=== PATIENT | female | born 1935 | race African-American/Black ===

== ENCOUNTER 2016-11-03 09:38 | Inpatient (IN) | payer OTHER ==
[~2016-11-03] VITALS: Ht 154.9 cm; Wt 52.2 kg
[~2016-11-03 09:38] MED LIST: HYDR-2666 PO; IBUP200T77 PO
[2016-11-03] MEDS ORDERED: HYDROCODONE/APAP 5/325MG TABLET. PO ONE (11:15)
--- NOTE | 2016-11-03 11:37 | RAD ---
Lumbar spine, 5 views, 11/03/2016: History: Back pain radiating into both legs The bony structures are demineralized. There is a grade 2 spondylolisthesis at L4-5. This appears to be due to severe underlying facet joint arthropathy. No definite spondylolysis is seen. There is moderate disc space at L4-5 and to a greater degree at L5-S1. There are mild scattered marginal spurs. The lumbar vertebral heights are well-maintained. Aortoiliac calcific plaquing is present. IMPRESSION: 1. Demineralization. 2. Moderate multilevel degenerative change. 3. Grade 2 spondylolisthesis at L4-5 due to facet joint arthropathy.
--- NOTE | 2016-11-03 12:10 | PHYS DOC ---
Past Medical History Past Medical History: High Cholesterol, Hypertension Past Surgical History: Other Additional Past Surgical Histo: back Alcohol Use: Occasionally Drug Use: None Adult General Chief Complaint Chief Complaint: bilateral leg pain HPI HPI Patient is a 81 year old female brought from home by ambulance with the complaint of pain in the back of both of her legs from the buttock down to the knee, equal bilaterally, pain is severe. It started week or 2 ago, she tried some [id number] pain meds. She was seen in the ED with a diagnosis of hamstring pain and given a prescription for #15 Mcbee. They did help when she took them but she has used them all up and now she is again in severe pain. She couldn't sleep at all last night. She can hardly get out of bed. She also relates an incident of loss of bladder control, but I'm not sure if that may have been caused by her inability to get up out of bed because her legs hurt so bad. She usually walks with a walker and has not been able to do so. She can hardly get out of bed due to pain. She did have surgery on a disc in her back years ago but she does not really have chronic back problems. Review of Systems Review of Systems Constitutional: Denies fever or chills [] Eyes: Denies change in visual acuity, redness, or eye pain [] HENT: Denies nasal congestion or sore throat [] Respiratory: Denies cough or shortness of breath [] Cardiovascular: Denies chest pain GI: Denies abdominal pain, nausea, vomiting, bloody stools or diarrhea [] : Denies dysuria or hematuria , denies UTI symptoms, as in history of present illness for loss of bladder control one time Musculoskeletal: As in history of present illness Integument: Denies rash or skin lesions [] Neurologic: Denies headache, focal weakness or sensory changes [] Current Medications Current Medications Current Medications Medications (Trade) Dose Ordered Sig/Katlyn Start Time Stop Time Status Last Admin Dose Admin Acetaminophen/ Hydrocodone Bitart (Lortab 5/325) 1 tab 1X ONCE 11/03/16 11:15 11/03/16 11:16 DC 11/03/16 11:28 1 TAB Allergies Allergies Allergies Coded Allergies Type Severity Reaction Last Updated Verified No Known Drug Allergies 10/23/16 No Physical Exam Physical Exam Constitutional: Well developed, well nourished, no acute distress, non-toxic appearance. Alert, mentating normally. HENT: Normocephalic, atraumatic, bilateral external ears normal, nose normal. [ ] Eyes: conjunctiva normal, no discharge. [] Neck: Normal range of motion, no stridor. [] Cardiovascular:Heart rate regular rhythm, no murmur [] Lungs & Thorax: Bilateral breath sounds clear to auscultation [] Abdomen: Bowel sounds normal, soft, no tenderness, no masses, no pulsatile masses. [] Skin: Warm, dry, no erythema, no rash. [] Extremities: No tenderness, no cyanosis, no clubbing, ROM intact, no edema. Area of pain is the posterior aspect of both thighs, nontender to palpation, no skin abnormalities, no swelling, no deformity, muscles are possibly a little tense Neurologic: Alert and oriented X 3, normal motor function, normal sensory function, no focal deficits noted. Lower extremity strength 5 over 5 for dorsi and plantar flexion of the great toes while laying on the cart Current Patient Data Vital Signs Vital Signs Date Time Temp Pulse Resp B/P Pulse Ox O2 Delivery O2 Flow Rate FiO2 11/03/16 11:55 78 18 170/100 98 11/03/16 11:28 Room Air 11/03/16 09:42 98.1 98.1 EKG EKG [] Radiology/Procedures Radiology/Procedures Lumbar spine x-rays read by the radiologist with grade 2 spondylolisthesis L4 on L5 [] Course & Med Decision Making Course & Med Decision Making Pertinent Labs and Imaging studies reviewed. (See chart for details) 81-year-old female with recent onset of severe disabling pain from her low back down into both posterior thighs to the knees. She can hardly get out of bed much less walk due to the pain. She did have one episode of loss of bladder control but I don't believe as described it was necessarily neurologic, sounds more like it was cause because she had too much pain to be able to get out of bed to go to the bathroom. X-rays show a significant L4-L5 spondylolisthesis. I believe her pain sounds radicular. She is virtually incapacitated by her pain and needs it addressed acutely as well as needs pain medication. I discussed the case with Dr. Samuel, [facility] medicine, who will admit the patient. I wrote bridge orders. She requested consultation with neurosurgery and pain management which I wrote for. Patient and her family are agreeable to the plan for admission. [] Dragon Disclaimer Dragon Disclaimer This electronic medical record was generated, in whole or in part, using a voice recognition dictation system. Departure Departure Impression: Primary Impression: Lumbar radiculopathy, acute Additional Impression: Spondylolisthesis at L4-L5 level Disposition: ADMITTED INPATIENT Admitting Physician: Other Condition: STABLE Referrals: CHARLEE MAYNARD MD (PCP) Problem Qualifiers ELVIN HIGGINS MD Nov 03, 2016 12:10
[2016-11-03] MEDS ORDERED: FENTANYL PF 100 MCG/2 ML VIAL. IV PRN ×2 (12:15)
[2016-11-03 12:50] LABS: BASO % 0 % (0-3); EOS % 0 % (0-3); HEMATOCRIT 42.1 % (36.0-47.0); LYMPH # 1.8 x10^3/uL (1.0-4.8); LYMPH % 17 % (24-48); MEAN CORPUSCULAR HEMOGLOBIN 32 pg (25-35); MEAN CORPUSCULAR HGB CONC 33 g/dL (31-37); MEAN CORPUSCULAR VOLUME 97 fL (79-100); MONO % 8 % (0-9); NEUT % 74 % (31-73); PLATELET COUNT 268 x10^3/uL (140-400); RED BLOOD COUNT 4.36 x10^6/uL (3.50-5.40); RED CELL DISTRIBUTION WIDTH 14.1 % (11.5-14.5); WHITE BLOOD COUNT 10.3 x10^3/uL (4.0-11.0)
[2016-11-03 12:57] LABS: CALCIUM 9.3 mg/dL (8.5-10.1); CREATININE 0.9 mg/dL (0.6-1.0); GFR 72.5; POTASSIUM 3.1 mmol/L (3.5-5.1)
[2016-11-03 13:03] LABS: ALBUMIN 3.6 g/dL (3.4-5.0); TOTAL BILIRUBIN 1.7 mg/dL (0.2-1.0); TOTAL PROTEIN 7.1 g/dL (6.4-8.2)
[2016-11-03 14:10] VITALS: BP 135/75
--- NOTE | 2016-11-03 14:56 | ACF ---
Admission Forms Criteria MUSCULOSKELETAL DISEASE GRG Clinical Indications for Admission to Inpatient Care (Place 'X' for any and all applicable criteria): Hospital admission is needed for appropriate care of the patient because of ANY ONE of the following: [X]I. Fracture, dislocation, or other musculoskeletal injury requiring inpatient care(medical) as indicated by ANY ONE of the following(4)(5)(6)(7) [ ]a) Vertebral fracture requiring observation for instability or neurologic compromise (8) [ ]b) Compartment syndrome (proven or cannot be ruled out during observation level of care) (9) [ ]c) Limb-threatening injury [ ]d) Major injury requiring inpatient stabilization such as traction initiation or external fixation before internal fixation or closure of complex or open fracture [X]e) Major injury requiring inpatient treatment after emergency or observation level care (as appropriate) [ ]f) Severe pain requiring acute inpatient management [ ]II. Newly diagnosed or suspected bone, joint, or orthopedic device infection (e.g., osteomyelitis, septic arthritis) needing ANY ONE of the following(1)(2)(3) [ ]a) IV antibiotics that cannot be initiated in other than inpatient setting (e.g., patient too unstable or home infusion not available) [ ]b) Device removal or replacement [ ]c) Bone or soft tissue debridement [ ]d) Joint drainage (drain placement or repetitive aspirations) [ ]III. Severe rheumatologic disease (e.g., systemic lupus erythematosus, rheumatoid arthritis) with complications or comorbidities (Also use Optimal Recovery Care Criteria or General Recovery Criteria as appropriate on the basis of predominant condition), including ANY ONE of the following(10 )(11)(12)(13) [ ]a) Severe infection (e.g., ASSISTANT WINEMAKER infection, sepsis) (14) [ ]b) Respiratory complications, including ANY ONE of the following: [ ]i) Pleural effusion with respiratory compromise [ ]ii) Pulmonary hypertension with congestive failure [ ]iii) Respiratory failure [ ]iv) Pulmonary hemorrhage (15) [ ]c) Hematologic disease, including ANY ONE of the following: [ ]i) Coagulopathy with bleeding [ ]ii) Thrombosis with hypercoagulable state [ ]iii) Thrombotic thrombocytopenic purpura [ ]d) Cerebritis with seizures, psychosis, or other severe abnormalities [ ]e) Vertebral destruction with monitoring needed for cervical myelopathy& possible respiratory compromise [ ]f) Exacerbation that requires inpatient treatment (e.g., intravenous immunosuppression) (16) [ ]g) Acute renal failure [ ]IV. Severe vasculitis with complications or comorbidities (Also use Optimal Recovery Care Criteria or General Recovery Criteria as appropriate on the basis of predominant condition), including ANY ONE of the following(11)(12)(17)(18)(19)(20) [ ]a) ASSISTANT WINEMAKER vasculitis with seizures, psychosis, or other severe abnormalities (22) [ ]b) Renal failure (16) [ ]c) Pulmonary hemorrhage (15) [ ]d) Cerebral infarction [ ]e) Gastrointestinal ischemia [ ]f) Gangrene or threatened amputation [ ]g) Exacerbation that requires inpatient treatment (e.g., intravenous immunosuppression) (19)(21) [ ]V. Severe myopathy as indicated by ANY ONE of the following (28)(29) [ ]a) New onset of airway compromise or inability to swallow [ ]b) Respiratory deterioration with observation needed for impending respiratory failure [ ]c) Exacerbation that requires inpatient treatment (e.g., intravenous immunosuppression) [ ]. Severe gout (crystal arthropathy) as indicated by ANY ONE of the following (23)(24) [ ]a) Severe pain requiring acute inpatient management [ ]b) Exacerbation that requires inpatient treatment (e.g., intravenous treatment) [ ]VII.Rhabdomyolysis and ANY ONE of the following (25)(26)(27) [ ]a) Acute renal failure [ ]b) Need for intravenous hydration after emergency or observation level care (as appropriate) [ ]c) Inability to maintain oral hydration [ ]d) Change in mental status [ ]e) Electrolyte abnormality that remains after emergency or observation level care (as appropriate) [ ]VIII Post amputation complication, as indicated by ANY ONE of the following [ ]a) Infection [ ]b) Dehiscence [ ]c) Myodesis failure [ ]IX. Severe pain requiring acute inpatient management as indicated by ALL of the following (30)(31)(32) [ ]a) Continuous or frequent (e.g., every 2 to 4 hrs) parenteral analgesics required [A] [ ]b) Rapid improvement expected from treatment or acute intervention ( e.g., surgery, anesthesia procedure[B] [ ]X. Musculoskeletal Disease and ALL of the following: [ ]a) Symptom or finding for which emergency and observation care have failed or are not considered appropriate (Use General Criteria: Observation Care as appropriate) [ ]b) Presence of ANY ONE of the following [ ]i) A General Admission Criteria [ ]ii) A Pediatric General Admission Criteria The original [facility] content created by [facility] has been revised. The portions of the content which have been revised are identified through the use of italic text or in bold, and [facility] has neither reviewed nor approved the modified material. All other unmodified content is copyright [facility]. Please see references footnoted in the original [facility] edition 2016 Admission Criteria Met?: Yes MELLISSA VILLAR Nov 03, 2016 14:56
[2016-11-03] MEDS ORDERED: tiZANidine 4 MG TABLET. PO PRN (16:15)
[2016-11-03] MEDS ORDERED: BUPIVACAINE MPF 0.25% 10 ML VIAL. IJ ONE (16:30)
[2016-11-03] MEDS ORDERED: methylPREDNISolone ACETATE 40 MG/ML VIAL. IM ONE ×2 (16:30)
--- NOTE | 2016-11-03 16:59 | PDOC4 ---
PROCEDURE Procedure At her request,I have injected painful left sacroiliac joint and ischial tuberosity bursa with marcaine and depomedrol solution under aseptic skin technique,and she tolerated the procedure satisfactorily without any side effects. MERE PULLIAM MD Nov 03, 2016 16:59
[2016-11-03] MEDS: PANTOPRAZOLE 40 MG TABLET. PO SCH (17:02)
[2016-11-03] MEDS ORDERED: AMLO10TA2 PO (18:05)
[2016-11-03 19:15] VITALS: BP 159/85
[2016-11-03] MEDS ORDERED: IBUPROFEN 200 MG TABLET PO PRN (19:45)
[2016-11-03] MEDS ORDERED: HYDROCODONE/APAP 5/325MG TABLET. PO PRN (19:45)
[2016-11-03] MEDS: IBUPROFEN 600 MG TABLET. PO SCH (20:41)
[2016-11-03] MEDS: FAMOTIDINE 20 MG TABLET. PO SCH (20:42)
[2016-11-03] MEDS: AMLODIPINE BESYLATE 10 MG TABLET PO SCH (20:42)
[2016-11-03 23:31] VITALS: BP 160/80
--- NOTE | 2016-11-04 01:21 | HP ---
ADMIT DATE: 11/03/2016 CHIEF COMPLAINT: Severe lower back pain with radiation into the legs. HISTORY OF PRESENT ILLNESS: The patient is a delightful 81-year-old -Martiniquais woman, who was brought in by ambulance from her home with complaints of lower back pain radiating into both legs. She relates that the pain is excruciating. She is unable to walk at this point. It started about 2 days ago and she had tried some [id number]-nam-[id number] pain medications as well as heating pads, which did not seem to improve her symptoms. She had been seen in the Emergency Room for same symptoms and had received a diagnosis of hamstring pain and was given a prescription for Danube, which she all used up in about 2 days. Now, she has trouble sleeping, cannot get out of bed and also had an episode of loss of bladder control, although unclear if this was secondary to inability to walk due to pain. At best, she walks with the walker at home. She did have a diskectomy in the distant past approximately 2009, but did not have any issues since then. The patient is now admitted for pain control and further evaluation by Dr. Clemens. PAST MEDICAL HISTORY: Essentially none, safe for hypertension and hypercholesterolemia. FAMILY HISTORY: Significant for hypertension and diabetes in sister and father. SOCIAL HISTORY: Lives by herself, never smoked, no toxic habits. ALLERGIES: No known drug allergies. MEDICATIONS: MAR reconciled with home medications. REVIEW OF SYSTEMS: Positive as per HPI. She denies any fevers, chills. Denies any recent interviews. The rest of organ system review is negative. PHYSICAL EXAMINATION: VITAL SIGNS: From today show blood pressure of 135/75, heart rate 66, respiratory rate of 18. She is afebrile. GENERAL: This is a well-nourished, 81-year-old, -Martiniquais woman, alert and oriented, in no acute distress. HEENT: Shows no scleral icterus. Oral mucosa is pink and moist. Dentition is poor. NECK: Supple, without lymphadenopathy. LUNGS: Clear to auscultation bilaterally. HEART: Regular rate and rhythm. ABDOMEN: Has positive bowel sounds, soft, nontender. EXTREMITIES: Show no edema, no clubbing or cyanosis. SKIN: Warm, soft dry. LABORATORY DATA: CBC with a WBC of 10.3, hemoglobin 14.0, platelets of 286. Chemistries with a BUN and creatinine of 12 and 0.9, potassium at 3.1, total bilirubin at 1.7. The rest of LFTs are within normal limits. IMAGING STUDIES: Lumbar spine x-ray revealed demineralization, moderate multilevel degenerative change and grade 2 spondylolisthesis at level L4-L5 due to facet joint arthropathy. ASSESSMENT AND PLAN: The patient is an 81-year-old woman with degenerative joint disease and signs of radiculopathy. We will admit her for pain control. Dr. Clemens will be consulted for consideration of nerve root injection. Blood pressure currently is perfectly within normal limits. We will monitor for now, has Norvasc at home, which will be continued. We will continue all home medications with normal renal functions. We will start on 30 of Lovenox for prophylaxis while physically in active. We will obtain OT, PT consult for evaluation of home needs versus rehab placement. DANIEL HENRY MD DR: KATELYN/nts JOB#: [id number] / [id number] FRAN
[2016-11-04 03:22] VITALS: BP 135/77
[2016-11-04 07:00] VITALS: BP 167/91
--- NOTE | 2016-11-04 08:45 | CONS ---
DATE OF CONSULTATION: 11/03/2016 ATTENDING PHYSICIAN: Dr. Samuel. REASON FOR CONSULTATION: The patient was seen at the request of Dr. Samuel for rehab evaluation. HISTORY OF PRESENT ILLNESS: This is an 81-year-old female admitted through the Emergency Room, brought by ambulance with complaints of left hip area pain with associated spasm going down to her left lower extremity, going on for about 2 weeks ago without any specific injury. She had tried [id number] medication without much help. The patient was diagnosed as having hamstring muscle strain in the Emergency Room and was given hydrocodone did help temporarily and she could not sleep last night, so this morning, she had difficulty to get out of the bed and also relates an incident of loss of bladder control. She usually walks using a walker. She does not have any steps to manage. She lives alone. The patient is status post lumbar disk surgery done in . She denies any chronic lower back pain. The patient being followed by Dr. Pasquale Pepper, but she has an appointment to see him in 09/21/2016. The patient had x-rays of lumbar spine done in the Emergency Room, which revealed grade 2 spondylolisthesis of L4 on L5 with associated moderate multilevel degenerative changes and demineralization and also associated facet joint arthropathy. PHYSICAL EXAMINATION: Today revealed an elderly female, she is alert, oriented to time, place, person and circumstance and follows commands appropriately, moves all 4 extremities voluntarily. She had severe pain on attempts at moving her left hip, even trying to roll over from side to side, she is having pain. She had tenderness to palpation over left sacroiliac joint area and also over the left ischial tuberosity bursa area. She had pain free range of motion on both hip and knee joints. Deep tendon reflexes are brisk at both knees, absent at both ankles. She had deformities of both thumbs secondary to degenerative changes of carpometacarpal joints of both thumbs. She has slight degree of muscle atrophy involving hand intrinsic muscles. She had equal perception of touch and pinprick sensation bilaterally. Negative Tinel's sign over median nerve at the wrist and over ulnar nerve at the wrist and elbow. She denies any significant discomfort in her neck or upper back area. Straight leg raising test is negative bilaterally. Her skin is intact at this time. ASSESSMENT: An elderly female with subacute lumbar sprain with associated left lumbar radiculitis and also left ischial tuberosity bursitis with radiological evidence of multilevel degenerative disk disease and degenerative joint disease of lumbar vertebrae without any clinical evidence of ongoing lumbar radiculopathy. She also presents with peripheral neuropathy and degenerative changes of both thumbs with deformities. The patient with known hypercholesterolemia and hypertension and also presents with hypokalemia. RECOMMENDATION: To proceed with injecting painful left sacroiliac joint and left ischial tuberosity bursa, to help ease her pain, to ask Physical Therapy and Occupational Therapy to see her, to start her on muscle relaxant medications and ibuprofen as an anti-inflammatory medication, hopefully home with outpatient followup or short term detention care unit transfer depending upon her progress in the next day or so. Dr. Samuel, I appreciate asking me to participate in care of this interesting patient. I will be glad to follow her with you as needed for her rehabilitation. MERE PULLIAM MD DR: ISAC/sulaiman JOB#: [id number] / [id number]
[2016-11-04] MEDS: FAMOTIDINE 20 MG TABLET. PO SCH ×2 (09:32→22:24)
[2016-11-04] MEDS: PANTOPRAZOLE 40 MG TABLET. PO SCH (09:32)
[2016-11-04] MEDS: IBUPROFEN 600 MG TABLET. PO SCH ×3 (09:33→22:25)
[2016-11-04] MEDS: AMLODIPINE BESYLATE 10 MG TABLET PO SCH (09:34)
--- NOTE | 2016-11-04 10:29 | PDOC ---
PROGRESS NOTES Subjective Subjective She feels much better this AM. Objective Objective Vital Signs Date Time Temp Pulse Resp B/P Pulse Ox O2 Delivery O2 Flow Rate FiO2 11/04/16 09:34 85 167/91 11/04/16 07:00 98.1 18 93 Room Air 98.1 Intake and Output 11/04/16 07:00 Intake Total 420 ml Output Total 1000 ml Balance -580 ml Intake Oral 420 ml Output Urine Total 1000 ml # Voids 3 Physical Exam Physical Exam She is walking with roller walker with wide based gait and I spoke to nursing and physical therapy and her family at bedside. 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 Assessment Assessment Problems Medical Problems: (1) Lumbar radiculopathy, acute Status: Acute (2) Spondylolisthesis at L4-L5 level Status: Acute Plan Plan of Care To ask for neurosurgical advise and if no need for surgery home when medically stable in the next day or two. Comment Review of Relevant I have reviewed the following items rashawn (where applicable) has been applied. Labs Laboratory Tests Test 11/03/16 12:33 White Blood Count 10.3x10^3/uL (4.0-11.0) Red Blood Count 4.36x10^6/uL (3.50-5.40) Hemoglobin 14.0g/dL (12.0-15.5) Hematocrit 42.1% (36.0-47.0) Mean Corpuscular Volume 97fL (79-100) Mean Corpuscular Hemoglobin 32pg (25-35) Mean Corpuscular Hemoglobin Concent 33g/dL (31-37) Red Cell Distribution Width 14.1% (11.5-14.5) Platelet Count 268x10^3/uL (140-400) Neutrophils (%) (Auto) 74% (31-73) Lymphocytes (%) (Auto) 17% (24-48) Monocytes (%) (Auto) 8% (0-9) Eosinophils (%) (Auto) 0% (0-3) Basophils (%) (Auto) 0% (0-3) Neutrophils # (Auto) 7.7x10^3uL (1.8-7.7) Lymphocytes # (Auto) 1.8x10^3/uL (1.0-4.8) Monocytes # (Auto) 0.8x10^3/uL (0.0-1.1) Eosinophils # (Auto) 0.0x10^3/uL (0.0-0.7) Basophils # (Auto) 0.0x10^3/uL (0.0-0.2) Sodium Level 145mmol/L (136-145) Potassium Level 3.1mmol/L (3.5-5.1) Chloride Level 105mmol/L (98-107) Carbon Dioxide Level 30mmol/L (21-32) Anion Gap 10 (6-14) Blood Urea Nitrogen 12mg/dL (7-20) Creatinine 0.9mg/dL (0.6-1.0) Estimated GFR (Cockcroft-Gault) 72.5 BUN/Creatinine Ratio 13 (6-20) Glucose Level 91mg/dL (70-99) Calcium Level 9.3mg/dL (8.5-10.1) Total Bilirubin 1.7mg/dL (0.2-1.0) Aspartate Amino Transf (AST/SGOT) 18U/L (15-37) Alanine Aminotransferase (ALT/SGPT) 18U/L (14-59) Alkaline Phosphatase 67U/L (46-116) Total Protein 7.1g/dL (6.4-8.2) Albumin 3.6g/dL (3.4-5.0) Albumin/Globulin Ratio 1.0 (1.0-1.7) Laboratory Tests Test 11/03/16 12:33 White Blood Count 10.3x10^3/uL (4.0-11.0) Red Blood Count 4.36x10^6/uL (3.50-5.40) Hemoglobin 14.0g/dL (12.0-15.5) Hematocrit 42.1% (36.0-47.0) Mean Corpuscular Volume 97fL (79-100) Mean Corpuscular Hemoglobin 32pg (25-35) Mean Corpuscular Hemoglobin Concent 33g/dL (31-37) Red Cell Distribution Width 14.1% (11.5-14.5) Platelet Count 268x10^3/uL (140-400) Neutrophils (%) (Auto) 74% (31-73) Lymphocytes (%) (Auto) 17% (24-48) Monocytes (%) (Auto) 8% (0-9) Eosinophils (%) (Auto) 0% (0-3) Basophils (%) (Auto) 0% (0-3) Neutrophils # (Auto) 7.7x10^3uL (1.8-7.7) Lymphocytes # (Auto) 1.8x10^3/uL (1.0-4.8) Monocytes # (Auto) 0.8x10^3/uL (0.0-1.1) Eosinophils # (Auto) 0.0x10^3/uL (0.0-0.7) Basophils # (Auto) 0.0x10^3/uL (0.0-0.2) Sodium Level 145mmol/L (136-145) Potassium Level 3.1mmol/L (3.5-5.1) Chloride Level 105mmol/L (98-107) Carbon Dioxide Level 30mmol/L (21-32) Anion Gap 10 (6-14) Blood Urea Nitrogen 12mg/dL (7-20) Creatinine 0.9mg/dL (0.6-1.0) Estimated GFR (Cockcroft-Gault) 72.5 BUN/Creatinine Ratio 13 (6-20) Glucose Level 91mg/dL (70-99) Calcium Level 9.3mg/dL (8.5-10.1) Total Bilirubin 1.7mg/dL (0.2-1.0) Aspartate Amino Transf (AST/SGOT) 18U/L (15-37) Alanine Aminotransferase (ALT/SGPT) 18U/L (14-59) Alkaline Phosphatase 67U/L (46-116) Total Protein 7.1g/dL (6.4-8.2) Albumin 3.6g/dL (3.4-5.0) Albumin/Globulin Ratio 1.0 (1.0-1.7) Medications Current Medications Acetaminophen/ Hydrocodone Bitart (Lortab 5/325) 1 tab 1X ONCE PO Last administered on 11/03/16t 11:28; Start 11/03/16 at 11:15; Stop 11/03/16 at 11:16 ; Status DC Fentanyl Citrate (Fentanyl 2ml Vial) 25 mcg PRN Q15MIN PRN IV PAIN GREATER THAN 3/10; Start 11/03/16 at 12:15; Stop 11/04/16 at 12:14 Fentanyl Citrate (Fentanyl 2ml Vial) 25 mcg PRN Q2HR PRN IV PAIN Last administered on 11/03/16 17:02; Start 11/03/16 at 12:15; Stop 11/04/16 at 12:14 Methylprednisolone Acetate (Depo-Medrol 40mg Vial) 40 mg 1X ONCE IM ; Start at 16:30; Stop 11/03/16 at 16:31; Status DC Methylprednisolone Acetate (Depo-Medrol 40mg Vial) 40 mg 1X ONCE IM ; Start at 16:30; Stop 11/03/16 at 16:31; Status DC Bupivacaine HCl (Sensorcaine-Mpf 0.25%) 10 ml 1X ONCE IJ ; Start 11/03/16 at 16 :30; Stop 11/03/16 at 16:31; Status DC Tizanidine HCl (Zanaflex) 4 mg PRN Q8HRS PRN PO MUSCLE SPASMS; Start 11/03/16 at 16:15 Ibuprofen (Motrin) 600 mg TID PO Last administered on 11/04/16 09:33; Start at 21:00 Pantoprazole Sodium (Protonix) 40 mg DAILYAC PO Last administered on 11/04/16 09:32; Start 11/03/16 at 17:00 Amlodipine Besylate (Norvasc) 10 mg DAILY PO Last administered on 11/04/16 09: 34; Start 11/03/16 at 20:00 Acetaminophen/ Hydrocodone Bitart (Lortab 5/325) 1 tab PRN Q6HRS PRN PO PAIN Last administered on 11/03/16 20:46; Start 11/03/16 at 19:45 Ibuprofen (Motrin) 200 mg PRN Q6HRS PRN PO INFLAMMATION; Start 11/03/16 at 19: 45 Famotidine (Pepcid) 20 mg BID PO Last administered on 11/04/16 09:32; Start at 21:00 Active Scripts Active Hydrocodone-Apap 5-325 (Hydrocodone Bit/Acetaminophen) 1 Each Tablet 1 Tab PO PRN Q6HRS PRN Be careful as this medication may cause you to be drowsy or tired. Do not drive on this medication. Ibuprofen 200 Mg Tablet 200 Mg PO PRN Q6HRS PRN Reported Amlodipine Besylate 10 Mg Tablet 10 Mg PO DAILY Vitals/I & O Vital Sign - Last 24 Hours 11/03/16 11/03/16 11/03/16 11/03/16 10:41 11:25 11:28 11:55 Pulse 78 76 78 Resp 20 18 B/P 142/75 177/84 170/100 Pulse Ox 97 98 98 98 O2 Delivery Room Air Room Air 11/03/16 11/03/16 11/03/16 11/03/16 12:25 12:55 13:25 14:10 Temp 98.7 98.7 Pulse 76 76 72 66 Resp 20 16 18 B/P 161/85 151/77 135/79 135/75 Pulse Ox 98 98 98 96 O2 Delivery Room Air Room Air 11/03/16 11/03/16 11/03/16 11/03/16 15:30 17:02 17:33 19:15 Temp 98.2 98.2 Pulse 79 Resp 20 B/P 159/85 Pulse Ox 95 O2 Delivery Room Air Room Air Room Air Room Air 11/03/16 11/03/16 11/03/16 11/03/16 20:00 20:42 20:46 21:46 Pulse 66 Resp 16 16 B/P 145/86 Pulse Ox 96 97 O2 Delivery Room Air Room Air Room Air 11/03/16 11/04/16 11/04/16 11/04/16 23:31 03:22 07:00 09:34 Temp 98.5 98.1 98.1 98.5 98.1 98.1 Pulse 66 71 85 85 Resp 20 18 B/P 160/80 135/77 167/91 167/91 Pulse Ox 97 96 93 O2 Delivery Room Air Room Air Room Air Intake and Output 11/03/16 11/03/16 11/04/16 15:00 23:00 07:00 Intake Total 120 ml 300 ml Output Total 400 ml 600 ml Balance -280 ml -300 ml MERE PULLIAM MD Nov 04, 2016 10:28
[2016-11-04 11:00] VITALS: BP 130/76
--- NOTE | 2016-11-04 11:13 | RAD ---
PROCEDURE MRI of the lumbar spine without contrast 11/04/2016 HISTORY Low back pain for 3 weeks which radiates down both legs. TECHNIQUE Unenhanced T1 weighted, T2 weighted and inversion recovery sagittal and T1 weighted and T2 weighted axial images of the lumbar spine were obtained. FINDINGS Comparison is made to the patient's radiograph of the lumbar spine dated 11/03/2016. Minimal S-shaped curvature of the thoracolumbar spine is seen. Degenerative signal changes are seen involving all of the discs of the lumbar spine. Degenerative signal changes are seen within the marrow surrounding these discs. Loss of height of the L4-5 and L5-S1 discs is noted. Mild to moderate anterolisthesis of L4 in relation to L5 is seen. The conus medullaris is normal in morphology, position, and signal characteristics. The L1-2 disc space is within normal limits. At the L2-3 and L3-4 disc spaces there are mild generalized disc bulges. Degenerative changes are seen involving the facet joints bilaterally. There is mild ligamentum flavum hypertrophy bilaterally. These findings do not result in significant central spinal canal or neural foraminal stenosis. At the L4-5 disc space the patient appears to be status post laminectomy. There is a moderate generalized disc bulge which is eccentric to the left. Degenerative changes are seen involving the facet joints bilaterally. These findings when combined result in moderate to severe left greater than right central spinal canal stenosis. Moderate left greater than right neural foraminal stenosis is seen. At the L5-S1 disc space there is a mild generalized disc bulge. Degenerative changes are seen involving the facet joints bilaterally. There is mild to moderate ligamentum flavum hypertrophy. These findings result in mild central spinal canal stenosis. Mild to moderate left neural foraminal stenosis is seen. The right neural foramina is patent. IMPRESSION 1. The patient is status post laminectomy at L4-5. 2. The changes of degenerative disc disease are seen throughout the lumbar spine. These findings result in mild central spinal canal stenosis at L5-S1 and moderate to severe left greater than right central spinal canal stenosis at L4-5. Moderate left greater than right neural foraminal stenosis is seen at L4-5. Mild to moderate left neural foraminal stenosis is seen at L5-S1. Electronically signed by: Ronak Felix MD (Nov 04, 2016 11:11:50)
--- NOTE | 2016-11-04 12:07 | PDOC ---
PROGRESS NOTES Chief Complaint Chief Complaint Severe LBP ASSESSMENT AND PLAN: 1. DJD/ radiculopathy: s/p injection by Dr Clemens on 11/03. symptomatically improved 2. Spondylolisthesis: awaiting Dr Carvajal's input. 3. Pain control: adequate. transition to PO completely. 4. Hypokalemia: replete orally, monitor 5. Dispo: OT/PT eval Vitals Vitals Vital Signs Date Time Temp Pulse Resp B/P Pulse Ox O2 Delivery O2 Flow Rate FiO2 11/04/16 09:34 85 167/91 11/04/16 07:00 98.1 18 93 Room Air 98.1 Physical Exam General: Alert, Oriented X3, Cooperative Heart: Regular rate Lungs: Clear Abdomen: Normal bowel sounds, Soft, No tenderness Extremities: No clubbing, No edema Skin: No rashes Labs LABS Laboratory Tests Test 11/03/16 12:33 White Blood Count 10.3x10^3/uL (4.0-11.0) Red Blood Count 4.36x10^6/uL (3.50-5.40) Hemoglobin 14.0g/dL (12.0-15.5) Hematocrit 42.1% (36.0-47.0) Mean Corpuscular Volume 97fL (79-100) Mean Corpuscular Hemoglobin 32pg (25-35) Mean Corpuscular Hemoglobin Concent 33g/dL (31-37) Red Cell Distribution Width 14.1% (11.5-14.5) Platelet Count 268x10^3/uL (140-400) Neutrophils (%) (Auto) 74% (31-73) Lymphocytes (%) (Auto) 17% (24-48) Monocytes (%) (Auto) 8% (0-9) Eosinophils (%) (Auto) 0% (0-3) Basophils (%) (Auto) 0% (0-3) Neutrophils # (Auto) 7.7x10^3uL (1.8-7.7) Lymphocytes # (Auto) 1.8x10^3/uL (1.0-4.8) Monocytes # (Auto) 0.8x10^3/uL (0.0-1.1) Eosinophils # (Auto) 0.0x10^3/uL (0.0-0.7) Basophils # (Auto) 0.0x10^3/uL (0.0-0.2) Sodium Level 145mmol/L (136-145) Potassium Level 3.1mmol/L (3.5-5.1) Chloride Level 105mmol/L (98-107) Carbon Dioxide Level 30mmol/L (21-32) Anion Gap 10 (6-14) Blood Urea Nitrogen 12mg/dL (7-20) Creatinine 0.9mg/dL (0.6-1.0) Estimated GFR (Cockcroft-Gault) 72.5 BUN/Creatinine Ratio 13 (6-20) Glucose Level 91mg/dL (70-99) Calcium Level 9.3mg/dL (8.5-10.1) Total Bilirubin 1.7mg/dL (0.2-1.0) Aspartate Amino Transf (AST/SGOT) 18U/L (15-37) Alanine Aminotransferase (ALT/SGPT) 18U/L (14-59) Alkaline Phosphatase 67U/L (46-116) Total Protein 7.1g/dL (6.4-8.2) Albumin 3.6g/dL (3.4-5.0) Albumin/Globulin Ratio 1.0 (1.0-1.7) Review of Systems Review of Systems pain much improved, in good spirits DANIEL HENRY MD Nov 04, 2016 12:07
[2016-11-04] MEDS: POTASSIUM CHLORIDE 20 MEQ TABLET.ER. PO SCH ×2 (13:34→22:25)
[2016-11-04 15:00] VITALS: BP 138/83
--- NOTE | 2016-11-04 15:29 | PDOC ---
PROGRESS NOTES Subjective Subjective Patient seen and examined lumbar stenosis/ spondylolisthesis L4-5. She has had previous surgery at this level. Surgery would be extensive and need to include instrumentation. Recommend referral to pain clinic and follow up as OP as needed. D/W Dr. Samuel. Objective Objective Vital Signs Date Time Temp Pulse Resp B/P Pulse Ox O2 Delivery O2 Flow Rate FiO2 11/04/16 11:00 98.3 80 18 130/76 97 Room Air 98.3 Intake and Output 11/04/16 07:00 Intake Total 420 ml Output Total 1000 ml Balance -580 ml Intake Oral 420 ml Output Urine Total 1000 ml # Voids 3 Assessment Assessment Problems Medical Problems: (1) Lumbar radiculopathy, acute Status: Acute (2) Spondylolisthesis at L4-L5 level Status: Acute Comment Review of Relevant I have reviewed the following items rashawn (where applicable) has been applied. Labs Laboratory Tests Test 11/03/16 12:33 White Blood Count 10.3x10^3/uL (4.0-11.0) Red Blood Count 4.36x10^6/uL (3.50-5.40) Hemoglobin 14.0g/dL (12.0-15.5) Hematocrit 42.1% (36.0-47.0) Mean Corpuscular Volume 97fL (79-100) Mean Corpuscular Hemoglobin 32pg (25-35) Mean Corpuscular Hemoglobin Concent 33g/dL (31-37) Red Cell Distribution Width 14.1% (11.5-14.5) Platelet Count 268x10^3/uL (140-400) Neutrophils (%) (Auto) 74% (31-73) Lymphocytes (%) (Auto) 17% (24-48) Monocytes (%) (Auto) 8% (0-9) Eosinophils (%) (Auto) 0% (0-3) Basophils (%) (Auto) 0% (0-3) Neutrophils # (Auto) 7.7x10^3uL (1.8-7.7) Lymphocytes # (Auto) 1.8x10^3/uL (1.0-4.8) Monocytes # (Auto) 0.8x10^3/uL (0.0-1.1) Eosinophils # (Auto) 0.0x10^3/uL (0.0-0.7) Basophils # (Auto) 0.0x10^3/uL (0.0-0.2) Sodium Level 145mmol/L (136-145) Potassium Level 3.1mmol/L (3.5-5.1) Chloride Level 105mmol/L (98-107) Carbon Dioxide Level 30mmol/L (21-32) Anion Gap 10 (6-14) Blood Urea Nitrogen 12mg/dL (7-20) Creatinine 0.9mg/dL (0.6-1.0) Estimated GFR (Cockcroft-Gault) 72.5 BUN/Creatinine Ratio 13 (6-20) Glucose Level 91mg/dL (70-99) Calcium Level 9.3mg/dL (8.5-10.1) Total Bilirubin 1.7mg/dL (0.2-1.0) Aspartate Amino Transf (AST/SGOT) 18U/L (15-37) Alanine Aminotransferase (ALT/SGPT) 18U/L (14-59) Alkaline Phosphatase 67U/L (46-116) Total Protein 7.1g/dL (6.4-8.2) Albumin 3.6g/dL (3.4-5.0) Albumin/Globulin Ratio 1.0 (1.0-1.7) Medications Current Medications Acetaminophen/ Hydrocodone Bitart (Lortab 5/325) 1 tab 1X ONCE PO Last administered on 11/03/16 11:28; Start 11/03/16 at 11:15; Stop 11/03/16 at 11:16 ; Status DC Fentanyl Citrate (Fentanyl 2ml Vial) 25 mcg PRN Q15MIN PRN IV PAIN GREATER THAN 3/10; Start 11/03/16 at 12:15; Stop 11/04/16 at 12:14; Status DC Fentanyl Citrate (Fentanyl 2ml Vial) 25 mcg PRN Q2HR PRN IV PAIN Last administered on 11/03/16 17:02; Start 11/03/16 at 12:15; Stop 11/04/16 at 12:14 ; Status DC Methylprednisolone Acetate (Depo-Medrol 40mg Vial) 40 mg 1X ONCE IM ; Start at 16:30; Stop 11/03/16 at 16:31; Status DC Methylprednisolone Acetate (Depo-Medrol 40mg Vial) 40 mg 1X ONCE IM ; Start at 16:30; Stop 11/03/16 at 16:31; Status DC Bupivacaine HCl (Sensorcaine-Mpf 0.25%) 10 ml 1X ONCE IJ ; Start 11/03/16 at 16 :30; Stop 11/03/16 at 16:31; Status DC Tizanidine HCl (Zanaflex) 4 mg PRN Q8HRS PRN PO MUSCLE SPASMS; Start 11/03/16 at 16:15 Ibuprofen (Motrin) 600 mg TID PO Last administered on 11/04/16 13:35; Start at 21:00 Pantoprazole Sodium (Protonix) 40 mg DAILYAC PO Last administered on 11/04/16 09:32; Start 11/03/16 at 17:00 Amlodipine Besylate (Norvasc) 10 mg DAILY PO Last administered on 11/04/16 09: 34; Start 11/03/16 at 20:00 Acetaminophen/ Hydrocodone Bitart (Lortab 5/325) 1 tab PRN Q6HRS PRN PO PAIN Last administered on 11/03/16 20:46; Start 11/03/16 at 19:45 Ibuprofen (Motrin) 200 mg PRN Q6HRS PRN PO INFLAMMATION; Start 11/03/16 at 19: 45 Famotidine (Pepcid) 20 mg BID PO Last administered on 11/04/16 09:32; Start at 21:00 Potassium Chloride (Klor-Con) 20 meq BID PO Last administered on 11/04/16 13: 34; Start 11/04/16 at 12:15 Active Scripts Active Hydrocodone-Apap 5-325 (Hydrocodone Bit/Acetaminophen) 1 Each Tablet 1 Tab PO PRN Q6HRS PRN Be careful as this medication may cause you to be drowsy or tired. Do not drive on this medication. Ibuprofen 200 Mg Tablet 200 Mg PO PRN Q6HRS PRN Reported Amlodipine Besylate 10 Mg Tablet 10 Mg PO DAILY Vitals/I & O Vital Sign - Last 24 Hours 11/03/16 11/03/16 11/03/16 11/03/16 15:30 17:02 17:33 19:15 Temp 98.2 98.2 Pulse 79 Resp 20 B/P 159/85 Pulse Ox 95 O2 Delivery Room Air Room Air Room Air Room Air 11/03/16 11/03/16 11/03/16 11/03/16 20:00 20:42 20:46 21:46 Pulse 66 Resp 16 16 B/P 145/86 Pulse Ox 96 97 O2 Delivery Room Air Room Air Room Air 11/03/16 11/04/16 11/04/16 11/04/16 23:31 03:22 07:00 08:00 Temp 98.5 98.1 98.1 98.5 98.1 98.1 Pulse 66 71 85 Resp 20 18 18 B/P 160/80 135/77 167/91 Pulse Ox 97 96 93 O2 Delivery Room Air Room Air Room Air Room Air 11/04/16 11/04/16 09:34 11:00 Temp 98.3 98.3 Pulse 85 80 Resp 18 B/P 167/91 130/76 Pulse Ox 97 O2 Delivery Room Air Intake and Output 11/03/16 11/03/16 11/04/16 15:00 23:00 07:00 Intake Total 120 ml 300 ml Output Total 400 ml 600 ml Balance -280 ml -300 ml SHRUTHI ARVIZU MD Nov 04, 2016 15:29
[2016-11-04] MEDS ORDERED: SENNOSIDES/DOCUSATE 8.6/50MG TABLET. PO PRN (16:45)
[2016-11-04 19:00] VITALS: BP 105/59
[2016-11-04 23:00] VITALS: BP 126/68
[2016-11-05 03:00] VITALS: BP 133/75
[2016-11-05 07:00] VITALS: BP 160/97
--- NOTE | 2016-11-05 09:04 | PDOC ---
PROGRESS NOTES Chief Complaint Chief Complaint Severe LBP ASSESSMENT AND PLAN: 1. DJD/ radiculopathy: s/p injection by Dr Clemens on 11/03. symptomatically improved 2. Spondylolisthesis: awaiting Dr Carvajal's input. 3. Pain control: adequate. transition to PO completely. 4. Hypokalemia: replete orally, monitor 5. Dispo: SNF Vitals Vitals Vital Signs Date Time Temp Pulse Resp B/P Pulse Ox O2 Delivery O2 Flow Rate FiO2 11/05/16 07:00 98.1 82 16 160/97 97 Room Air 98.1 Physical Exam General: Alert, Oriented X3, Cooperative Heart: Regular rate Lungs: Clear Abdomen: Normal bowel sounds, Soft, No tenderness Extremities: No clubbing, No edema Skin: No rashes Review of Systems Review of Systems LBP much better, walking with walker Comment Labs Laboratory Tests Test 11/03/16 12:33 White Blood Count 10.3x10^3/uL (4.0-11.0) Red Blood Count 4.36x10^6/uL (3.50-5.40) Hemoglobin 14.0g/dL (12.0-15.5) Hematocrit 42.1% (36.0-47.0) Mean Corpuscular Volume 97fL (79-100) Mean Corpuscular Hemoglobin 32pg (25-35) Mean Corpuscular Hemoglobin Concent 33g/dL (31-37) Red Cell Distribution Width 14.1% (11.5-14.5) Platelet Count 268x10^3/uL (140-400) Neutrophils (%) (Auto) 74% (31-73) Lymphocytes (%) (Auto) 17% (24-48) Monocytes (%) (Auto) 8% (0-9) Eosinophils (%) (Auto) 0% (0-3) Basophils (%) (Auto) 0% (0-3) Neutrophils # (Auto) 7.7x10^3uL (1.8-7.7) Lymphocytes # (Auto) 1.8x10^3/uL (1.0-4.8) Monocytes # (Auto) 0.8x10^3/uL (0.0-1.1) Eosinophils # (Auto) 0.0x10^3/uL (0.0-0.7) Basophils # (Auto) 0.0x10^3/uL (0.0-0.2) Sodium Level 145mmol/L (136-145) Potassium Level 3.1mmol/L (3.5-5.1) Chloride Level 105mmol/L (98-107) Carbon Dioxide Level 30mmol/L (21-32) Anion Gap 10 (6-14) Blood Urea Nitrogen 12mg/dL (7-20) Creatinine 0.9mg/dL (0.6-1.0) Estimated GFR (Cockcroft-Gault) 72.5 BUN/Creatinine Ratio 13 (6-20) Glucose Level 91mg/dL (70-99) Calcium Level 9.3mg/dL (8.5-10.1) Total Bilirubin 1.7mg/dL (0.2-1.0) Aspartate Amino Transf (AST/SGOT) 18U/L (15-37) Alanine Aminotransferase (ALT/SGPT) 18U/L (14-59) Alkaline Phosphatase 67U/L (46-116) Total Protein 7.1g/dL (6.4-8.2) Albumin 3.6g/dL (3.4-5.0) Albumin/Globulin Ratio 1.0 (1.0-1.7) Medications Current Medications Acetaminophen/ Hydrocodone Bitart (Lortab 5/325) 1 tab 1X ONCE PO Last administered on 11/03/16 11:28; Start 11/03/16 at 11:15; Stop 11/03/16 at 11:16 ; Status DC Fentanyl Citrate (Fentanyl 2ml Vial) 25 mcg PRN Q15MIN PRN IV PAIN GREATER THAN 3/10; Start 11/03/16 at 12:15; Stop 11/04/16 at 12:14; Status DC Fentanyl Citrate (Fentanyl 2ml Vial) 25 mcg PRN Q2HR PRN IV PAIN Last administered on 11/03/16 17:02; Start 11/03/16 at 12:15; Stop 11/04/16 at 12:14 ; Status DC Methylprednisolone Acetate (Depo-Medrol 40mg Vial) 40 mg 1X ONCE IM ; Start at 16:30; Stop 11/03/16 at 16:31; Status DC Methylprednisolone Acetate (Depo-Medrol 40mg Vial) 40 mg 1X ONCE IM ; Start at 16:30; Stop 11/03/16 at 16:31; Status DC Bupivacaine HCl (Sensorcaine-Mpf 0.25%) 10 ml 1X ONCE IJ ; Start 11/03/16 at 16 :30; Stop 11/03/16 at 16:31; Status DC Tizanidine HCl (Zanaflex) 4 mg PRN Q8HRS PRN PO MUSCLE SPASMS Last administered on 11/05/16 02:58; Start 11/03/16 at 16:15 Ibuprofen (Motrin) 600 mg TID PO Last administered on 11/04/16 22:25; Start at 21:00 Pantoprazole Sodium (Protonix) 40 mg DAILYAC PO Last administered on 11/04/16 09:32; Start 11/03/16 at 17:00 Amlodipine Besylate (Norvasc) 10 mg DAILY PO Last administered on 11/04/16 09: 34; Start 11/03/16 at 20:00 Acetaminophen/ Hydrocodone Bitart (Lortab 5/325) 1 tab PRN Q6HRS PRN PO PAIN Last administered on 11/03/16 20:46; Start 11/03/16 at 19:45 Ibuprofen (Motrin) 200 mg PRN Q6HRS PRN PO INFLAMMATION; Start 11/03/16 at 19: 45 Famotidine (Pepcid) 20 mg BID PO Last administered on 11/04/16 22:24; Start at 21:00 Potassium Chloride (Klor-Con) 20 meq BID PO Last administered on 11/04/16 22: 25; Start 11/04/16 at 12:15 Senna/Docusate Sodium (Senna Plus) 1 tab PRN BID PRN PO CONSTIPATION; Start at 16:45 Active Scripts Active Hydrocodone-Apap 5-325 (Hydrocodone Bit/Acetaminophen) 1 Each Tablet 1 Tab PO PRN Q6HRS PRN Be careful as this medication may cause you to be drowsy or tired. Do not drive on this medication. Ibuprofen 200 Mg Tablet 200 Mg PO PRN Q6HRS PRN Reported Amlodipine Besylate 10 Mg Tablet 10 Mg PO DAILY Vitals/I & O Vital Sign - Last 24 Hours 2/16/11/04/16 11/04/16 11/04/16 09:34 11:00 15:00 19:00 Temp 98.3 98.1 98.3 98.3 98.1 98.3 Pulse 85 80 91 80 Resp B/P 167/91 130/76 138/83 105/59 Pulse Ox 97 95 94 O2 Delivery Room Air Room Air Room Air 11/04/16 11/04/16 11/05/16 11/05/16 20:00 23:00 03:00 07:00 Temp 98.3 97.7 98.1 98.3 97.7 98.1 Pulse 69 71 82 Resp B/P 126/68 133/75 160/97 Pulse Ox 91 96 97 O2 Delivery Room Air Room Air Room Air Room Air Intake and Output 11/04/16 11/04/16 11/05/16 15:00 23:00 07:00 Intake Total 120 ml 240 ml Output Total 725 ml Balance -605 ml 240 ml DANIEL HENRY MD Nov 05, 2016 09:04
[2016-11-05 09:05] LABS: CALCIUM 9.2 mg/dL (8.5-10.1); CREATININE 0.9 mg/dL (0.6-1.0); GFR 72.5; MAGNESIUM 1.9 mg/dL (1.8-2.4); POTASSIUM 3.3 mmol/L (3.5-5.1)
[2016-11-05] MEDS: FAMOTIDINE 20 MG TABLET. PO SCH (09:12)
[2016-11-05] MEDS: PANTOPRAZOLE 40 MG TABLET. PO SCH (09:12)
[2016-11-05] MEDS: IBUPROFEN 600 MG TABLET. PO SCH ×3 (09:12→21:06)
[2016-11-05] MEDS: POTASSIUM CHLORIDE 20 MEQ TABLET.ER. PO SCH ×2 (09:12→21:01)
[2016-11-05] MEDS: AMLODIPINE BESYLATE 10 MG TABLET PO SCH (09:13)
--- NOTE | 2016-11-05 10:50 | PDOC ---
PROGRESS NOTES Subjective Subjective She feels better but still admits some discomfort while getting up. Objective Objective Vital Signs Date Time Temp Pulse Resp B/P Pulse Ox O2 Delivery O2 Flow Rate FiO2 11/05/16 09:13 82 160/97 11/05/16 07:00 98.1 16 97 Room Air 98.1 Intake and Output 11/05/16 07:00 Intake Total 360 ml Output Total 725 ml Balance -365 ml Intake Oral 360 ml Output Urine Total 725 ml Physical Exam Physical Exam She is independent with her mobility at roller walker level but still walks with wide based gait. Assessment Assessment Problems Medical Problems: (1) Lumbar radiculopathy, acute Status: Acute (2) Spondylolisthesis at L4-L5 level Status: Acute Plan Plan of Care To SNF when medically stable. Comment Review of Relevant I have reviewed the following items rashawn (where applicable) has been applied. Labs Laboratory Tests Test 11/03/16 12:33 11/05/16 08:22 White Blood Count 10.3x10^3/uL (4.0-11.0) Red Blood Count 4.36x10^6/uL (3.50-5.40) Hemoglobin 14.0g/dL (12.0-15.5) Hematocrit 42.1% (36.0-47.0) Mean Corpuscular Volume 97fL (79-100) Mean Corpuscular Hemoglobin 32pg (25-35) Mean Corpuscular Hemoglobin Concent 33g/dL (31-37) Red Cell Distribution Width 14.1% (11.5-14.5) Platelet Count 268x10^3/uL (140-400) Neutrophils (%) (Auto) 74% (31-73) Lymphocytes (%) (Auto) 17% (24-48) Monocytes (%) (Auto) 8% (0-9) Eosinophils (%) (Auto) 0% (0-3) Basophils (%) (Auto) 0% (0-3) Neutrophils # (Auto) 7.7x10^3uL (1.8-7.7) Lymphocytes # (Auto) 1.8x10^3/uL (1.0-4.8) Monocytes # (Auto) 0.8x10^3/uL (0.0-1.1) Eosinophils # (Auto) 0.0x10^3/uL (0.0-0.7) Basophils # (Auto) 0.0x10^3/uL (0.0-0.2) Sodium Level 145mmol/L (136-145) 142mmol/L (136-145) Potassium Level 3.1mmol/L (3.5-5.1) 3.3mmol/L (3.5-5.1) Chloride Level 105mmol/L (98-107) 104mmol/L (98-107) Carbon Dioxide Level 30mmol/L (21-32) 28mmol/L (21-32) Anion Gap 10 (6-14) 10 (6-14) Blood Urea Nitrogen 12mg/dL (7-20) 12mg/dL (7-20) Creatinine 0.9mg/dL (0.6-1.0) 0.9mg/dL (0.6-1.0) Estimated GFR (Cockcroft-Gault) 72.5 72.5 BUN/Creatinine Ratio 13 (6-20) Glucose Level 91mg/dL (70-99) 134mg/dL (70-99) Calcium Level 9.3mg/dL (8.5-10.1) 9.2mg/dL (8.5-10.1) Total Bilirubin 1.7mg/dL (0.2-1.0) Aspartate Amino Transf (AST/SGOT) 18U/L (15-37) Alanine Aminotransferase (ALT/SGPT) 18U/L (14-59) Alkaline Phosphatase 67U/L (46-116) Total Protein 7.1g/dL (6.4-8.2) Albumin 3.6g/dL (3.4-5.0) Albumin/Globulin Ratio 1.0 (1.0-1.7) Magnesium Level 1.9mg/dL (1.8-2.4) Laboratory Tests Test 11/05/16 08:22 Sodium Level 142mmol/L (136-145) Potassium Level 3.3mmol/L (3.5-5.1) Chloride Level 104mmol/L (98-107) Carbon Dioxide Level 28mmol/L (21-32) Anion Gap 10 (6-14) Blood Urea Nitrogen 12mg/dL (7-20) Creatinine 0.9mg/dL (0.6-1.0) Estimated GFR (Cockcroft-Gault) 72.5 Glucose Level 134mg/dL (70-99) Calcium Level 9.2mg/dL (8.5-10.1) Magnesium Level 1.9mg/dL (1.8-2.4) Medications Current Medications Acetaminophen/ Hydrocodone Bitart (Lortab 5/325) 1 tab 1X ONCE PO Last administered on 11/03/16 11:28; Start 11/03/16 at 11:15; Stop 11/03/16 at 11:16 ; Status DC Fentanyl Citrate (Fentanyl 2ml Vial) 25 mcg PRN Q15MIN PRN IV PAIN GREATER THAN 3/10; Start 11/03/16 at 12:15; Stop 11/04/16 at 12:14; Status DC Fentanyl Citrate (Fentanyl 2ml Vial) 25 mcg PRN Q2HR PRN IV PAIN Last administered on 11/03/16 17:02; Start 11/03/16 at 12:15; Stop 11/04/16 at 12:14 ; Status DC Methylprednisolone Acetate (Depo-Medrol 40mg Vial) 40 mg 1X ONCE IM ; Start at 16:30; Stop 11/03/16 at 16:31; Status DC Methylprednisolone Acetate (Depo-Medrol 40mg Vial) 40 mg 1X ONCE IM ; Start at 16:30; Stop 11/03/16 at 16:31; Status DC Bupivacaine HCl (Sensorcaine-Mpf 0.25%) 10 ml 1X ONCE IJ ; Start 11/03/16 at 16 :30; Stop 11/03/16 at 16:31; Status DC Tizanidine HCl (Zanaflex) 4 mg PRN Q8HRS PRN PO MUSCLE SPASMS Last administered on 11/05/16 02:58; Start 11/03/16 at 16:15 Ibuprofen (Motrin) 600 mg TID PO Last administered on 11/05/16 09:12; Start at 21:00 Pantoprazole Sodium (Protonix) 40 mg DAILYAC PO Last administered on 11/05/16 09:12; Start 11/03/16 at 17:00 Amlodipine Besylate (Norvasc) 10 mg DAILY PO Last administered on 11/05/16 09: 13; Start 11/03/16 at 20:00 Acetaminophen/ Hydrocodone Bitart (Lortab 5/325) 1 tab PRN Q6HRS PRN PO PAIN Last administered on 11/03/16 20:46; Start 11/03/16 at 19:45 Ibuprofen (Motrin) 200 mg PRN Q6HRS PRN PO INFLAMMATION; Start 11/03/16 at 19: 45 Famotidine (Pepcid) 20 mg BID PO Last administered on 11/05/16 09:12; Start at 21:00 Potassium Chloride (Klor-Con) 20 meq BID PO Last administered on 11/05/16 09: 12; Start 11/04/16 at 12:15 Senna/Docusate Sodium (Senna Plus) 1 tab PRN BID PRN PO CONSTIPATION; Start at 16:45 Active Scripts Active Hydrocodone-Apap 5-325 (Hydrocodone Bit/Acetaminophen) 1 Each Tablet 1 Tab PO PRN Q6HRS PRN Be careful as this medication may cause you to be drowsy or tired. Do not drive on this medication. Ibuprofen 200 Mg Tablet 200 Mg PO PRN Q6HRS PRN Reported Amlodipine Besylate 10 Mg Tablet 10 Mg PO DAILY Vitals/I & O Vital Sign - Last 24 Hours 11/04/16 11/04/16 11/04/16 11/04/16 11:00 15:00 19:00 20:00 Temp 98.3 98.1 98.3 98.3 98.1 98.3 Pulse 80 91 80 Resp 18 B/P 130/76 138/83 105/59 Pulse Ox 97 95 94 O2 Delivery Room Air Room Air Room Air Room Air 11/04/16 11/05/16 11/05/16 11/05/16 23:00 03:00 07:00 09:13 Temp 98.3 97.7 98.1 98.3 97.7 98.1 Pulse 69 71 82 82 Resp 18 18 16 B/P 126/68 133/75 160/97 160/97 Pulse Ox 91 96 97 O2 Delivery Room Air Room Air Room Air Intake and Output 11/04/16 11/04/16 11/05/16 15:00 23:00 07:00 Intake Total 120 ml 240 ml Output Total 725 ml Balance -605 ml 240 ml MERE PULLIAM MD Nov 05, 2016 10:50
[2016-11-05 11:24] VITALS: BP 111/63
[2016-11-05] MEDS ORDERED: HYDR-2666 PO (12:32)
[2016-11-05] MEDS ORDERED: SENN-22 PO (12:32)
[2016-11-05 14:49] VITALS: BP 118/72
[2016-11-05 19:00] VITALS: BP 137/81
[2016-11-05 23:00] VITALS: BP 163/97
[2016-11-06 03:00] VITALS: BP 144/90
[2016-11-06 07:00] VITALS: BP 117/84
[2016-11-06] MEDS: PANTOPRAZOLE 40 MG TABLET. PO SCH (08:07)
[2016-11-06] MEDS: IBUPROFEN 600 MG TABLET. PO SCH ×2 (08:07→15:25)
[2016-11-06] MEDS: POTASSIUM CHLORIDE 20 MEQ TABLET.ER. PO SCH (08:08)
[2016-11-06] MEDS: AMLODIPINE BESYLATE 10 MG TABLET PO SCH (08:08)
[2016-11-06] MEDS ORDERED: FAMOTIDINE 20 MG TABLET. PO SCH (09:00)
[2016-11-06 11:00] VITALS: BP 131/87
--- NOTE | 2016-11-06 11:12 | PDOC ---
PROGRESS NOTES Subjective Subjective She is worried about her small dog at home but also concerned about how she can manage bath tub at home. Objective Objective Vital Signs Date Time Temp Pulse Resp B/P Pulse Ox O2 Delivery O2 Flow Rate FiO2 11/06/16 08:08 77 117/84 11/06/16 07:40 Room Air 11/06/16 07:00 98.2 16 99 98.2 Intake and Output 11/06/16 07:00 # Voids 4 Physical Exam Physical Exam She is independent with her mobility at roller walker level and pain is under control. Assessment Assessment Problems Medical Problems: (1) Lumbar radiculopathy, acute Status: Acute (2) Spondylolisthesis at L4-L5 level Status: Acute Plan Plan of Care Waiting for SNF transfer when medically stable. Comment Review of Relevant I have reviewed the following items rashawn (where applicable) has been applied. Labs Laboratory Tests Test 11/05/16 08:22 Sodium Level 142mmol/L (136-145) Potassium Level 3.3mmol/L (3.5-5.1) Chloride Level 104mmol/L (98-107) Carbon Dioxide Level 28mmol/L (21-32) Anion Gap 10 (6-14) Blood Urea Nitrogen 12mg/dL (7-20) Creatinine 0.9mg/dL (0.6-1.0) Estimated GFR (Cockcroft-Gault) 72.5 Glucose Level 134mg/dL (70-99) Calcium Level 9.2mg/dL (8.5-10.1) Magnesium Level 1.9mg/dL (1.8-2.4) Medications Current Medications Acetaminophen/ Hydrocodone Bitart (Lortab 5/325) 1 tab 1X ONCE PO Last administered on 11/03/16 11:28; Start 11/03/16 at 11:15; Stop 11/03/16 at 11:16 ; Status DC Fentanyl Citrate (Fentanyl 2ml Vial) 25 mcg PRN Q15MIN PRN IV PAIN GREATER THAN 3/10; Start 11/03/16 at 12:15; Stop 11/04/16 at 12:14; Status DC Fentanyl Citrate (Fentanyl 2ml Vial) 25 mcg PRN Q2HR PRN IV PAIN Last administered on 11/03/16 17:02; Start 11/03/16 at 12:15; Stop 11/04/16 at 12:14 ; Status DC Methylprednisolone Acetate (Depo-Medrol 40mg Vial) 40 mg 1X ONCE IM ; Start at 16:30; Stop 11/03/16 at 16:31; Status DC Methylprednisolone Acetate (Depo-Medrol 40mg Vial) 40 mg 1X ONCE IM ; Start at 16:30; Stop 11/03/16 at 16:31; Status DC Bupivacaine HCl (Sensorcaine-Mpf 0.25%) 10 ml 1X ONCE IJ ; Start 11/03/16 at 16 :30; Stop 11/03/16 at 16:31; Status DC Tizanidine HCl (Zanaflex) 4 mg PRN Q8HRS PRN PO MUSCLE SPASMS Last administered on 11/05/16 02:58; Start 11/03/16 at 16:15 Ibuprofen (Motrin) 600 mg TID PO Last administered on 11/06/16 08:07; Start at 21:00 Pantoprazole Sodium (Protonix) 40 mg DAILYAC PO Last administered on 11/06/16 08:07; Start 11/03/16 at 17:00 Amlodipine Besylate (Norvasc) 10 mg DAILY PO Last administered on 11/06/16 08: 08; Start 11/03/16 at 20:00 Acetaminophen/ Hydrocodone Bitart (Lortab 5/325) 1 tab PRN Q6HRS PRN PO MODERATE PAIN Last administered on 11/03/16 20:46; Start 11/03/16 at 19:45 Ibuprofen (Motrin) 200 mg PRN Q6HRS PRN PO INFLAMMATION; Start 11/03/16 at 19: 45 Famotidine (Pepcid) 20 mg BID PO Last administered on 11/05/16 09:12; Start at 21:00; Stop 11/05/16 at 13:38; Status DC Potassium Chloride (Klor-Con) 20 meq BID PO Last administered on 11/06/16 08: 08; Start 11/04/16 at 12:15 Senna/Docusate Sodium (Senna Plus) 1 tab PRN BID PRN PO CONSTIPATION; Start at 16:45 Famotidine (Pepcid) 20 mg Q24H PO Last administered on 2/18/17at 08:07; Start 11/06/16 at 09:00 Active Scripts Active Hydrocodone-Apap 5-325 (Hydrocodone Bit/Acetaminophen) 1 Each Tablet 1 Tab PO PRN Q6HRS PRN Be careful as this medication may cause you to be drowsy or tired. Do not drive on this medication. Ibuprofen 200 Mg Tablet 200 Mg PO PRN Q6HRS PRN Reported Amlodipine Besylate 10 Mg Tablet 10 Mg PO DAILY Vitals/I & O Vital Sign - Last 24 Hours 11/05/16 11/05/16 11/05/16 11/05/16 11:24 14:49 19:00 20:00 Temp 97.7 99.7 98.1 97.7 99.7 98.1 Pulse 76 72 88 Resp 18 B/P 111/63 118/72 137/81 Pulse Ox 96 94 95 O2 Delivery Room Air Room Air Room Air Room Air 11/05/16 11/06/16 11/06/16 11/06/16 23:00 03:00 07:00 07:40 Temp 98.0 98.2 98.2 98.0 98.2 98.2 Pulse 86 66 77 Resp 16 B/P 163/97 144/90 117/84 Pulse Ox 97 93 99 O2 Delivery Room Air Room Air Room Air Room Air 11/06/16 08:08 Pulse 77 B/P 117/84 MERE PULLIAM MD Nov 06, 2016 11:12
--- NOTE | 2016-11-06 14:47 | PDOC3 ---
Discharge Summary [facility] Date of Admission: Nov 03, 2016 Discharge Date: Nov 06, 2016 Admitting Diagnosis 1. DJD/ radiculopathy: s/p injection by Dr Clemens on 11/03. 2. Spondylolisthesis: 3. Pain control: 4. Hypokalemia: Problems: Final Diagnosis Problems Medical Problems: (1) Lumbar radiculopathy, acute Status: Acute (2) Spondylolisthesis at L4-L5 level Status: Acute CONSULTS dr. Clemens for left sacrailiac joint steroid injection [facility] Course Ms. Langley is a 81 old F, previous lumbar sx for spinal stenosis, comes for lower back pain. MRI showed l4-5 DJD, and spondylolisthesis, neurosx consulted, no sx recommended. pt got left sacrailiac joint steroid injection, pain is better, can independently walk with a walker. living alone, has a sister coming to see her daily dc HH dc time 35min General: Alert, Oriented X3, Cooperative Heart: Regular rate Lungs: Clear Abdomen: Normal bowel sounds, Soft, No tenderness Extremities: No clubbing, No edema Skin: No rashes Patient History: Family history: Diabetes mellitus (situation) 32 MOTHER Problems: Disposition HH CONDITION AT DISCHARGE: Improved Diet REGULAR Scheduled Amlodipine Besylate (Amlodipine Besylate) 10 MG PO DAILY (Reported) Scheduled PRN Hydrocodone Bit/Acetaminophen (Hydrocodone-Apap 5-325 ) 1 TAB PO PRN Q6HRS PRN PRN PAIN Ibuprofen (Ibuprofen) 200 MG PO PRN Q6HRS PRN PRN INFLAMMATION Follow Up pcp in 2 weeks NEPTALI HINOJOSA MD Nov 06, 2016 14:47
[2016-11-06 15:00] VITALS: BP 115/62
== END 2016-11-06 16:17 | disposition home health service (06) | DRG 552 ==
LOC: ER 09:38 → 4 NORTH 12:00
PROVIDERS: ADMIT Internal Medicine Hematology & Oncology; ATTEND Internal Medicine Hematology & Oncology
PROC: 3E0U33Z Introduction of Anti-inflammatory into Joints, Percutaneous Approach (ICD-10-PCS; principal; 2016-11-03)
PROC: 3E0U3BZ Introduction of Anesthetic Agent into Joints, Percutaneous Approach (ICD-10-PCS; 2016-11-03)
DX: M47.26 Other spondylosis with radiculopathy, lumbar region (principal); M43.16 Spondylolisthesis, lumbar region; E87.6 Hypokalemia; Z60.2 Problems related to living alone; E78.00 Pure hypercholesterolemia, unspecified; G62.9 Polyneuropathy, unspecified; I10 Essential (primary) hypertension; M19.90 Unspecified osteoarthritis, unspecified site; M46.90 Unspecified inflammatory spondylopathy, site unspecified; M48.06 Spinal stenosis, lumbar region; R32 Unspecified urinary incontinence; S33.5XXA Sprain of ligaments of lumbar spine, initial encounter; Z82.49 Family history of ischemic heart disease and other diseases of the circulatory system; Z83.3 Family history of diabetes mellitus; Z79.899 Other long term (current) drug therapy
CPT/HCPCS: 36415; 72110; 72148; 80048; 80053; 83735; 85027; J3010; 97110; 97116; 97535; 99285-25

== ENCOUNTER 2022-01-24 10:14 | Inpatient (IN) | payer OTHER ==
[~2022-01-24] VITALS: Ht 154.9 cm; Wt 43.3 kg
[~2022-01-24 10:14] MED LIST changes: +AMLO-187 PO; -HYDR-2666 PO; +HYDR-2761 PO; +SENN-22 PO
[2022-01-24 11:11] LABS: BASO % 0 % (0-3); EOS # 0.1 x10^3/uL (0.0-0.7); EOS % 1 % (0-3); HEMATOCRIT 40.5 % (36.0-47.0); HEMOGLOBIN 13.4 g/dL (12.0-15.5); LYMPH # 2.1 x10^3/uL (1.0-4.8); LYMPH % 18 % (24-48); MEAN CORPUSCULAR HEMOGLOBIN 32 pg (25-35); MEAN CORPUSCULAR HGB CONC 33 g/dL (31-37); MEAN CORPUSCULAR VOLUME 96 fL (79-100); MONO # 1.1 x10^3/uL (0.0-1.1); MONO % 9 % (0-9); NEUT # 8.4 x10^3/uL (1.8-7.7); NEUT % 72 % (31-73); PLATELET COUNT 328 x10^3/uL (140-400); RED BLOOD COUNT 4.24 x10^6/uL (3.50-5.40); RED CELL DISTRIBUTION WIDTH 13.5 % (11.5-14.5); WHITE BLOOD COUNT 11.7 x10^3/uL (4.0-11.0)
[2022-01-24] MEDS ORDERED: IOHEXOL 300 MG/ML 100ML VIAL. IV ONE (11:15)
[2022-01-24 11:19] LABS: BACTERIA,URINE 0 /HPF (0-FEW); RBC,URINE 0 /HPF (0-2); WBC,URINE 0 /HPF (0-4)
[2022-01-24 11:26] LABS: CREATININE 0.9 mg/dL (0.6-1.0); GFR 71.7; POTASSIUM 3.6 mmol/L (3.5-5.1)
[2022-01-24] MEDS ORDERED: CONTRAST GIVEN. MC PRN (11:30)
[2022-01-24 11:31] LABS: INFLUENZA A PATIENT NEGATIVE (NEGATIVE); INFLUENZA B PATIENT NEGATIVE (NEGATIVE)
[2022-01-24 11:32] LABS: ALBUMIN 3.3 g/dL (3.4-5.0); ALBUMIN/GLOBULIN RATIO 0.8 (1.0-1.7); TOTAL BILIRUBIN 1.3 mg/dL (0.2-1.0); TOTAL PROTEIN 7.3 g/dL (6.4-8.2)
--- NOTE | 2022-01-24 12:10 | RAD ---
CT ABDOMEN+PELVIS W dated 01/24/2022 11:34 AM Indication:Reason: abd pain, diarrhea / Spl. Instructions: Omni 300 75ML / History: Comparison: No comparison is available. Technique: CT images were made through the abdomen and pelvis using an infusion of 75 mL Omnipaque 30 0. No oral contrast was given. One or more of the following individualized dose reduction techniques were utilized for this examinat ion: 1. Automated exposure control 2. Adjustment of the mA and/or kV according to patient size 3. Use of iterative reconstruction technique Findings: There is mild dependent atelectasis. The lung bases otherwise are clear. The liver is homogeneous in density and normal in configuration. The spleen is very small, but otherwise appears normal. Both kid neys enhance with contrast. There is a cystic area in the upper pole extending over about 3.6 cm. Thi s could be a parapelvic cyst or dilated upper pole collecting system. There is no apparent ureteral d ilatation. The adrenal glands are not enlarged. The pancreas is small. No solid mass or inflammation is seen. The main pancreatic duct is slightly prominent. There is a cystic area at the pancreatic hea d measuring about 8 mm. This appears to be the distal CBD. No cause for obstruction is seen. No retro peritoneal or mesenteric adenopathy is seen. There is no apparent abdominal mass or clearcut inflamma tory process. The wall of the proximal stomach appears thickened, but this could be from poor distent ion. Images through the pelvis show no apparent abnormality of the distal ureters or bladder. No pelvic or inguinal adenopathy is seen. The uterus and adnexal areas show no abnormality. There is a small amou nt of free fluid in the pelvis. No separate pelvic mass is seen. Evaluation of the GI tract is somewh at limited by lack of oral contrast and incomplete distention. There is no obvious colitis or diverti culitis. There may be a short segment of wall thickening involving the rectum. There could also be mi ld small bowel wall thickening involving a loop in the mid pelvis. A normal appendix is thought to be shown extending medially and posteriorly from the cecum. IMPRESSION: Evaluation of the GI tract is limited by lack of distention and lack of oral contrast. Potential area s of inflammation include the proximal stomach, a mid small bowel loop in the pelvis, and the proxima l rectum. There is a small amount of free fluid in the pelvis. Electronically signed by: Clovis Calderon Jr., MD (01/24/2022 12:08 PM) [facility] CARE CORPORATIONRadha
--- NOTE | 2022-01-24 14:53 | PHYS DOC ---
Past Medical History Past Medical History: High Cholesterol, Hypertension Past Surgical History: No Surgical History Additional Past Surgical Histo: back Smoking Status: Current Every Day Smoker Alcohol Use: None Drug Use: None General Adult EDM: Chief Complaint: DIZZY/LIGHT HEADED HPI: HPI: 86-year-old female with no significant past medical history other than hypertension presents today with dizziness and feeling like she is going to pass out. She had a presyncopal like episode in our emergency department as well. Diarrhea onset 3 days ago. Patient lives alone. No nausea or vomiting. No recent trauma. No blood or mucus in the stool. Stool is described as pure brown liquid. Review of Systems: Review of Systems: Constitutional: Denies fever or chills. [] Eyes: Denies change in visual acuity. [] HENT: Denies nasal congestion or sore throat. [] Respiratory: Denies cough or shortness of breath. [] Cardiovascular: Denies chest pain or edema. [] GI: Positive for diarrhea : Denies dysuria. [] Musculoskeletal: Denies back pain or joint pain. [] Integument: Denies rash. [] Neurologic: Denies headache, focal weakness or sensory changes. [] Endocrine: Denies polyuria or polydipsia. [] Lymphatic: Denies swollen glands. [] Psychiatric: Denies depression or anxiety. [] Heart Score: C/O Chest Pain: No Risk Factors: Risk Factors: DM, Current or recent (<one month) smoker, HTN, HLP, family history of CAD, obesity. Risk Scores: Score 0 - 3: 2.5% MACE over next 6 weeks - Discharge Home Score 4 - 6: 20.3% MACE over next 6 weeks - Admit for Clinical Observation Score 7 - 10: 72.7% MACE over next 6 weeks - Early Invasive Strategies Current Medications: Current Medications Medications (Trade) Dose Ordered Sig/Katlyn Start Time Stop Time Status Last Admin Dose Admin Info (CONTRAST GIVEN -- Rx MONITORING) 1 each PRN DAILY PRN 01/24/22 11:30 01/26/22 11:29 Iohexol (Omnipaque 300 Mg/ml) 75 ml 1X ONCE 01/24/22 11:15 01/24/22 11:16 DC 01/24/22 11:15 75 ML Sodium Chloride 500 ml @ 500 mls/hr 1X ONCE 01/24/22 15:00 01/24/22 15:59 01/24/22 14:29 500 MLS/HR Allergies: Allergies: Allergies Coded Allergies Type Severity Reaction Last Updated Verified No Known Drug Allergies 10/23/16 No Physical Exam: PE: Constitutional: Well developed, well nourished, no acute distress, non-toxic appearance. [] HENT: Normocephalic, atraumatic, bilateral external ears normal, oropharynx moist, no oral exudates, nose normal. [] Eyes: PERRLA, EOMI, conjunctiva normal, no discharge. [] Neck: Normal range of motion, no tenderness, supple, no stridor. [] Cardiovascular:Heart rate regular rhythm, no murmur [] Lungs & Thorax: Bilateral breath sounds clear to auscultation [] Abdomen: Bowel sounds normal, soft, no tenderness, no masses, no pulsatile masses. [] Skin: Warm, dry, no erythema, no rash. [] Back: No tenderness, no CVA tenderness. [] Extremities: No tenderness, no cyanosis, no clubbing, ROM intact, no edema. [] Neurologic: Alert and oriented X 3, normal motor function, normal sensory function, no focal deficits noted. [] Psychologic: Affect normal, judgement normal, mood normal. [] Current Patient Data: Labs: Laboratory Tests Test 01/24/22 11:00 01/24/22 11:10 White Blood Count 11.7 x10^3/uL (4.0-11.0) H Red Blood Count 4.24 x10^6/uL (3.50-5.40) Hemoglobin 13.4 g/dL (12.0-15.5) Hematocrit 40.5 % (36.0-47.0) Mean Corpuscular Volume 96 fL (79-100) Mean Corpuscular Hemoglobin 32 pg (25-35) Mean Corpuscular Hemoglobin Concent 33 g/dL (31-37) Red Cell Distribution Width 13.5 % (11.5-14.5) Platelet Count 328 x10^3/uL (140-400) Neutrophils (%) (Auto) 72 % (31-73) Lymphocytes (%) (Auto) 18 % (24-48) L Monocytes (%) (Auto) 9 % (0-9) Eosinophils (%) (Auto) 1 % (0-3) Basophils (%) (Auto) 0 % (0-3) Neutrophils # (Auto) 8.4 x10^3/uL (1.8-7.7) H Lymphocytes # (Auto) 2.1 x10^3/uL (1.0-4.8) Monocytes # (Auto) 1.1 x10^3/uL (0.0-1.1) Eosinophils # (Auto) 0.1 x10^3/uL (0.0-0.7) Basophils # (Auto) 0.0 x10^3/uL (0.0-0.2) Urine Collection Type Unknown Urine Color (Auto) Colorless Urine Turbidity Clear Urine pH (Auto) 7.5 (<5.0-8.0) Urine Specific [place] 1.007 (1.000-1.030) Urine Protein (Auto) Negative mg/dL (Negative) Urine Glucose (Auto)(UA) Negative mg/dL (Negative) Urine Ketones (Auto) Negative mg/dL (Negative) Urine Blood (Auto) Negative (Negative) Urine Nitrite Negative (Negative) Urine Bilirubin (Auto) Negative (Negative) Urine Urobilinogen (Auto) Normal mg/dL (Normal) Urine Leukocyte Esterase (Auto) Negative (Negative) Urine RBC 0 /HPF (0-2) Urine WBC 0 /HPF (0-4) Urine Squamous Epithelial Cells Few /LPF Urine Transitional Epithelial Cells Few /LPF Urine Bacteria 0 /HPF (0-FEW) Sodium Level 140 mmol/L (136-145) Potassium Level 3.6 mmol/L (3.5-5.1) Chloride Level 103 mmol/L (98-107) Carbon Dioxide Level 24 mmol/L (21-32) Anion Gap 13 (6-14) Blood Urea Nitrogen 7 mg/dL (7-20) Creatinine 0.9 mg/dL (0.6-1.0) Estimated GFR (Cockcroft-Gault) 71.7 BUN/Creatinine Ratio 8 (6-20) Glucose Level 81 mg/dL (70-99) Calcium Level 9.0 mg/dL (8.5-10.1) Total Bilirubin 1.3 mg/dL (0.2-1.0) H Aspartate Amino Transferase (AST) 20 U/L (15-37) Alanine Aminotransferase (ALT) 17 U/L (14-59) Alkaline Phosphatase 92 U/L (46-116) Troponin I High Sensitivity 21 ng/L (4-50) Total Protein 7.3 g/dL (6.4-8.2) Albumin 3.3 g/dL (3.4-5.0) L Albumin/Globulin Ratio 0.8 (1.0-1.7) L Lipase 51 U/L (73-393) L Influenza Type A Antigen Negative (NEGATIVE) Influenza Type B Antigen Negative (NEGATIVE) SARS-CoV-2 Antigen (Rapid) Negative (NEGATIVE) Laboratory Tests 01/24/22 11:00 Laboratory Tests 01/24/22 11:00 Vital Signs: Vital Signs Date Time Temp Pulse Resp B/P (MAP) Pulse Ox O2 Delivery O2 Flow Rate FiO2 01/24/22 13:17 66 20 146/54 (84) 98 01/24/22 10:31 98.0 Room Air 98.0 EKG: EKG: [] Radiology/Procedures: Radiology/Procedures: [] Course & Med Decision Making: Course & Med Decision Making Patient's lab work CT scan and orthostatic vital signs are all normal. However when we went to stand up the patient she had multiple episodes of dizziness and had trouble standing up on her own. I suspect that she has low venous capacitance and possible autonomic regulation issues as well. Therefore since she lives alone we will give her IV hydration and monitor her as she can be a fall risk Dragon Disclaimer: Dragdomingo Disclaimer: This electronic medical record was generated, in whole or in part, using a voice recognition dictation system. Departure Departure Impression: Primary Impression: Dizziness Additional Impression: Diarrhea Disposition: ADMITTED INPATIENT Condition: STABLE Referrals: NO PCP (PCP) DEMOND BILLY MD January 24, 2022 14:53
[2022-01-24] MEDS: IV NORMAL SALINE 1000ML BAG 1,000 ML IV SCH ×2 (15:00→18:14)
[2022-01-24] MEDS: metroNIDAZOLE 500 MG TABLET PO SCH ×2 (15:00→23:04)
[2022-01-24] MEDS ORDERED: IV NORMAL SALINE 500ML BAG 500 ML IV ONE (15:00)
[2022-01-24] MEDS: cefTRIAXone IV Push 1 GM VIAL. IVP SCH (15:00)
--- NOTE | 2022-01-24 15:33 | HP ---
DATE OF SERVICE: 01/24/2022 ADMIT DATE: 01/24/2022 CHIEF COMPLAINT: Diarrhea, weakness and near syncope. HISTORY OF PRESENT ILLNESS: The patient is a pleasant 86-year-old female who lives alone. She has been having some loose stools over the past few days. She complains of feeling quite weak whenever she stands up. She had a near syncopal episode a couple of times and actually even almost have one here in our Emergency Room. While in the ER, we noticed that her white count is a little high at 11.7. She is a little orthostatic. I discussed the case with ER physician. We are going to admit the patient, give her IV fluids and consult GI for her diarrhea. PAST MEDICAL HISTORY: Hypertension, arthritis, chronic pain. ALLERGIES: None. FAMILY HISTORY: Diabetes. 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 MEDICATIONS: Reviewed. She is on amlodipine, ibuprofen, hydrocodone and senna. REVIEW OF SYSTEMS: GENERAL: No history of weight change, weakness or fevers. SKIN: No bruising, hair changes or rashes. EYES: No blurred, double or loss of vision. NOSE AND THROAT: No history of nosebleeds, hoarseness or sore throat. HEART: No history of palpitations, chest pain or shortness of breath on exertion. LUNGS: Denies cough, hemoptysis, wheezing or shortness of breath. GASTROINTESTINAL: She complains of diarrhea. GENITOURINARY: No history of frequency, urgency, hesitancy or nocturia. NEUROLOGIC: She complains of weakness and near syncope. PSYCHIATRIC: No history of panic, anxiety or depression. ENDOCRINE: No history of heat or cold intolerance, polyuria or polydipsia. EXTREMITIES: Denies muscle weakness, joint pain, pain on walking or stiffness. PHYSICAL EXAMINATION: VITALS: Within normal limits and are stable. GENERAL: No apparent distress. Alert and oriented. HEENT: Normocephalic atraumatic, external auditory canals are patent. EYES: Extraocular muscles are intact, pupils are equally round and reactive to light and accommodation. MUSCULOSKELETAL: Well developed, well nourished, good range of motion. ENDOCRINE: No thyromegaly was palpated. LYMPHATICS: No cervical chain or axillary nodes were noted. HEMATOPOIETIC: No bruising. NECK: Supple, no JVD, no thyromegaly was noted. LUNGS: Clear to auscultation in all lung wang without rhonchi or wheezing. HEART: RRR, S1, S2 present. Peripheral pulses intact, no obvious murmurs were noted. ABDOMEN: Soft, nontender. Positive bowel sounds no organomegaly, normal bowel sounds. EXTREMITIES: Without any cyanosis, clubbing, or edema. Pedal pulses intact, Homans sign is negative. NEUROLOGIC: Normal speech, normal tone. A and O x 3, moves all extremities, no obvious focal deficits. PSYCHIATRIC: Normal affect, normal mood. Stable. SKIN: No ulcerations or rashes, good skin turgor, no jaundice. VASCULAR: Good capillary refill, neurovascular bundle appears to be intact. LABORATORY DATA: Electrolytes are normal. White count is high at 11.7, hemoglobin 13.4, platelets 328. Urinalysis negative. COVID testing negative. Flu testing is negative. CT of the abdomen and pelvis showed a potential area of inflammation including the proximal stomach and a mid small bowel loop and proximal cecum. ASSESSMENT AND PLAN: Diarrhea with clinical dehydration, leukocytosis and abnormal CAT scan and malnutrition with an albumin of 3.3. The patient has been admitted. We will consult GI. IV fluids, empiric IV antibiotics, PT, OT, home meds. DVT prophylaxis. Full code. Consult social worker health services for possible long-term care placement. NKGabriella/[facility] DR: CONSTANTINO/sulaiman TID: [id number]
[2022-01-24 17:30] VITALS: BP 132/72
--- NOTE | 2022-01-24 18:33 | NUR ---
call and notified Dr. sauceda of consult
[2022-01-24 19:00] VITALS: BP 140/75
--- NOTE | 2022-01-24 20:19 | EKG ---
[facility] [address] [place] [address] Test Date: 2022-01-24 Test Time: 10:48:52 Pat Name: WAYLON COHEN Department: Room: [facility] Gender: F Alum Operator: : [id number] Requested By: DEMOND BILLY Order Number: [id number] Reading MD: Jordan Call MD Measurements Intervals [place] Rate: 71 P: 65 SC: 160 QRS: 43 QRSD: 72 T: 24 QT: 414 QTc: 450 Interpretive Statements SINUS RHYTHM ATRIAL PREMATURE COMPLEX(ES) Electronically Signed On 01-25-2022 8:52:13 CDT by Jordan Call MD
[2022-01-24 22:57] VITALS: BP 144/84
[2022-01-25 03:00] VITALS: BP 123/63
[2022-01-25] MEDS: metroNIDAZOLE 500 MG TABLET PO SCH ×3 (06:00→21:18)
[2022-01-25 07:15] VITALS: BP 135/82
--- NOTE | 2022-01-25 08:57 | PDOC2 ---
GI CONSULT Date of Service: DATE: 01/25/22 TIME: 08:57 Reason For Consult: diarrhea HPI: HPI: 86 y/o female who is not a good historian. Chart indicates to ER w/ loose stools, dizziness/weakness/near syncope. Denies GI complaints currently - does indicate she had some diarrhea at some point at home. D/w nurse - "soft stool" yesterday, no diarrhea. She denies reflux/heartburn, dysphagia, n/v, abd pain, change in appetite, hematochezia, melena, constipation, or issues w/ chronic diarrhea. Indicates she has lost some weight. Unclear if had previous EGD but thinks she had a colonoscopy at some point - details unclear. Denies GB, liver, pancreas, and PUD history. CT noted 8mm cystic area at the pancreatic head (distal to CBD) and PD fullness. PMH: PMH: per chart: HTN, HLD, OA, DDD laminectomy, bilateral cataract extraction FH: Family History: No pertinent hx Social History: Smoke: Quit ALCOHOL: rare ROS: GEN: Denies fevers, chills, sweats HEENT: Denies blurred vision, sore throat CV: Denies chest pain RESP: Denies shortness of air, cough GI: Per HPI : Denies hematuria, dysuria ENDO: weight loss NEURO: Denies confusion, dizziness MSK: weakness SKIN: Denies jaundice, pruritus Vitals: Vitals: Vital Signs Date Time Temp Pulse Resp B/P (MAP) Pulse Ox O2 Delivery O2 Flow Rate FiO2 01/25/22 07:15 98.1 79 16 135/82 (99) 97 Room Air 98.1 Labs: Labs: Laboratory Tests Test 01/24/22 11:00 01/24/22 11:10 White Blood Count 11.7 x10^3/uL (4.0-11.0) Red Blood Count 4.24 x10^6/uL (3.50-5.40) Hemoglobin 13.4 g/dL (12.0-15.5) Hematocrit 40.5 % (36.0-47.0) Mean Corpuscular Volume 96 fL (79-100) Mean Corpuscular Hemoglobin 32 pg (25-35) Mean Corpuscular Hemoglobin Concent 33 g/dL (31-37) Red Cell Distribution Width 13.5 % (11.5-14.5) Platelet Count 328 x10^3/uL (140-400) Neutrophils (%) (Auto) 72 % (31-73) Lymphocytes (%) (Auto) 18 % (24-48) Monocytes (%) (Auto) 9 % (0-9) Eosinophils (%) (Auto) 1 % (0-3) Basophils (%) (Auto) 0 % (0-3) Neutrophils # (Auto) 8.4 x10^3/uL (1.8-7.7) Lymphocytes # (Auto) 2.1 x10^3/uL (1.0-4.8) Monocytes # (Auto) 1.1 x10^3/uL (0.0-1.1) Eosinophils # (Auto) 0.1 x10^3/uL (0.0-0.7) Basophils # (Auto) 0.0 x10^3/uL (0.0-0.2) Urine Collection Type Unknown Urine Color (Auto) Colorless Urine Turbidity Clear Urine pH (Auto) 7.5 (<5.0-8.0) Urine Specific [place] 1.007 (1.000-1.030) Urine Protein (Auto) Negative mg/dL (Negative) Urine Glucose (Auto)(UA) Negative mg/dL (Negative) Urine Ketones (Auto) Negative mg/dL (Negative) Urine Blood (Auto) Negative (Negative) Urine Nitrite Negative (Negative) Urine Bilirubin (Auto) Negative (Negative) Urine Urobilinogen (Auto) Normal mg/dL (Normal) Urine Leukocyte Esterase (Auto) Negative (Negative) Urine RBC 0 /HPF (0-2) Urine WBC 0 /HPF (0-4) Urine Squamous Epithelial Cells Few /LPF Urine Transitional Epithelial Cells Few /LPF Urine Bacteria 0 /HPF (0-FEW) Sodium Level 140 mmol/L (136-145) Potassium Level 3.6 mmol/L (3.5-5.1) Chloride Level 103 mmol/L (98-107) Carbon Dioxide Level 24 mmol/L (21-32) Anion Gap 13 (6-14) Blood Urea Nitrogen 7 mg/dL (7-20) Creatinine 0.9 mg/dL (0.6-1.0) Estimated GFR (Cockcroft-Gault) 71.7 BUN/Creatinine Ratio 8 (6-20) Glucose Level 81 mg/dL (70-99) Calcium Level 9.0 mg/dL (8.5-10.1) Total Bilirubin 1.3 mg/dL (0.2-1.0) Aspartate Amino Transf (AST/SGOT) 20 U/L (15-37) Alanine Aminotransferase (ALT/SGPT) 17 U/L (14-59) Alkaline Phosphatase 92 U/L (46-116) Troponin I High Sensitivity 21 ng/L (4-50) Total Protein 7.3 g/dL (6.4-8.2) Albumin 3.3 g/dL (3.4-5.0) Albumin/Globulin Ratio 0.8 (1.0-1.7) Lipase 51 U/L (73-393) Influenza Type A Antigen Negative (NEGATIVE) Influenza Type B Antigen Negative (NEGATIVE) SARS-CoV-2 Antigen (Rapid) Negative (NEGATIVE) Allergies: Coded Allergies: No Known Drug Allergies (Unverified , 10/23/16) Medications: Current Medications Medications (Trade) Dose Ordered Sig/Katlyn Route PRN Reason Start Time Stop Time Status Last Admin Dose Admin Iohexol (Omnipaque 300 Mg/ml) 75 ml 1X ONCE IV 01/24/22 11:15 01/24/22 11:16 DC 01/24/22 11:15 Sodium Chloride 500 ml @ 500 mls/hr 1X ONCE IV 01/24/22 15:00 01/24/22 15:59 DC 01/24/22 14:29 Metronidazole (Flagyl) 500 mg Q8HRS PO 01/24/22 15:00 01/25/22 06:00 Ceftriaxone Sodium (Rocephin) 1 gm Q24H IVP 01/24/22 15:00 01/24/22 15:00 Sodium Chloride 1,000 ml @ 75 mls/hr [id number] IV 01/24/22 15:00 01/24/22 18:14 Imaging: Imaging: CT A/P Findings: There is mild dependent atelectasis. The lung bases otherwise are clear. The liver is homogeneous in density and normal in configuration. The spleen is very small, but otherwise appears normal. Both kidneys enhance with contrast. There is a cystic area in the upper pole extending over about 3.6 cm. This could be a parapelvic cyst or dilated upper pole collecting system. There is no apparent ureteral dilatation. The adrenal glands are not enlarged. The pancreas is small. No solid mass or inflammation is seen. The main pancreatic duct is slightly prominent. There is a cystic area at the pancreatic head measuring about 8 mm. This appears to be the distal CBD. No cause for obstruction is seen. No retroperitoneal or mesenteric adenopathy is seen. There is no apparent abdominal mass or clearcut inflammatory process. The wall of the proximal stomach appears thickened, but this could be from poor distention. Images through the pelvis show no apparent abnormality of the distal ureters or bladder. No pelvic or inguinal adenopathy is seen. The uterus and adnexal areas show no abnormality. There is a small amount of free fluid in the pelvis. No separate pelvic mass is seen. Evaluation of the GI tract is somewhat limited by lack of oral contrast and incomplete distention. There is no obvious colitis or diverticulitis. There may be a short segment of wall thickening involving the rectum. There could also be mild small bowel wall thickening involving a loop in the mid pelvis. A normal appendix is thought to be shown extending medially and posteriorly from the cecum. IMPRESSION: Evaluation of the GI tract is limited by lack of distention and lack of oral contrast. Potential areas of inflammation include the proximal stomach, a mid small bowel loop in the pelvis, and the proximal rectum. There is a small amount of free fluid in the pelvis. PE: GEN: NAD, along in room HEENT: Atraumatic, PERRL, poor dentition LUNGS: CTAB HEART: RRR ABD: NABS, S/ND/NT EXTREMITY: No edema SKIN: No rashes, no jaundice NEURO/PSYCH: A & O 3, forgetful A/P: A/P: Diarrhea, weakness - better Abnormal CT - "evaluation of the GI tract is limited by lack of distention and lack of oral contrast. Potential areas of inflammation include the proximal stomach, a mid small bowel loop in the pelvis, and the proximal rectum. There is a small amount of free fluid in the pelvis." Rapid COVID negative -- Unclear significance of CT report. Diarrhea apparently no longer a concern. If recurs, check stool studies. Observe GI-soliman. Probably doesn't need antibiotics. JOSE SCHULTE January 25, 2022 08:57
--- NOTE | 2022-01-25 10:21 | PDOC ---
[employer] PROGRESS NOTE Date of Service DOS: DATE: 01/25/22 TIME: 10:20 Chief Complaint Chief Complaint Diarrhea Clinical dehydration Leukocytosis Probable inability to take care of her self Hypertension, arthritis, chronic pain. History of Present Illness History of Present Illness 01/25/2022 Patient seen and examined Discussed with RN Discussed with case management Chart reviewed Patient seems pleasant this morning Intermittently confused? Vitals/I&O Vitals/I&O: Vital Signs Date Time Temp Pulse Resp B/P (MAP) Pulse Ox O2 Delivery O2 Flow Rate FiO2 01/25/22 07:15 98.1 79 16 135/82 (99) 97 Room Air 98.1 Physical Exam General: No acute distress Heart: Regular rate Lungs: Clear Abdomen: Normal bowel sounds Extremities: No clubbing Skin: No rashes Labs Labs: Laboratory Tests Test 01/24/22 11:00 01/24/22 11:10 White Blood Count 11.7 x10^3/uL (4.0-11.0) Red Blood Count 4.24 x10^6/uL (3.50-5.40) Hemoglobin 13.4 g/dL (12.0-15.5) Hematocrit 40.5 % (36.0-47.0) Mean Corpuscular Volume 96 fL (79-100) Mean Corpuscular Hemoglobin 32 pg (25-35) Mean Corpuscular Hemoglobin Concent 33 g/dL (31-37) Red Cell Distribution Width 13.5 % (11.5-14.5) Platelet Count 328 x10^3/uL (140-400) Neutrophils (%) (Auto) 72 % (31-73) Lymphocytes (%) (Auto) 18 % (24-48) Monocytes (%) (Auto) 9 % (0-9) Eosinophils (%) (Auto) 1 % (0-3) Basophils (%) (Auto) 0 % (0-3) Neutrophils # (Auto) 8.4 x10^3/uL (1.8-7.7) Lymphocytes # (Auto) 2.1 x10^3/uL (1.0-4.8) Monocytes # (Auto) 1.1 x10^3/uL (0.0-1.1) Eosinophils # (Auto) 0.1 x10^3/uL (0.0-0.7) Basophils # (Auto) 0.0 x10^3/uL (0.0-0.2) Urine Collection Type Unknown Urine Color (Auto) Colorless Urine Turbidity Clear Urine pH (Auto) 7.5 (<5.0-8.0) Urine Specific [place] 1.007 (1.000-1.030) Urine Protein (Auto) Negative mg/dL (Negative) Urine Glucose (Auto)(UA) Negative mg/dL (Negative) Urine Ketones (Auto) Negative mg/dL (Negative) Urine Blood (Auto) Negative (Negative) Urine Nitrite Negative (Negative) Urine Bilirubin (Auto) Negative (Negative) Urine Urobilinogen (Auto) Normal mg/dL (Normal) Urine Leukocyte Esterase (Auto) Negative (Negative) Urine RBC 0 /HPF (0-2) Urine WBC 0 /HPF (0-4) Urine Squamous Epithelial Cells Few /LPF Urine Transitional Epithelial Cells Few /LPF Urine Bacteria 0 /HPF (0-FEW) Sodium Level 140 mmol/L (136-145) Potassium Level 3.6 mmol/L (3.5-5.1) Chloride Level 103 mmol/L (98-107) Carbon Dioxide Level 24 mmol/L (21-32) Anion Gap 13 (6-14) Blood Urea Nitrogen 7 mg/dL (7-20) Creatinine 0.9 mg/dL (0.6-1.0) Estimated GFR (Cockcroft-Gault) 71.7 BUN/Creatinine Ratio 8 (6-20) Glucose Level 81 mg/dL (70-99) Calcium Level 9.0 mg/dL (8.5-10.1) Total Bilirubin 1.3 mg/dL (0.2-1.0) Aspartate Amino Transf (AST/SGOT) 20 U/L (15-37) Alanine Aminotransferase (ALT/SGPT) 17 U/L (14-59) Alkaline Phosphatase 92 U/L (46-116) Troponin I High Sensitivity 21 ng/L (4-50) Total Protein 7.3 g/dL (6.4-8.2) Albumin 3.3 g/dL (3.4-5.0) Albumin/Globulin Ratio 0.8 (1.0-1.7) Lipase 51 U/L (73-393) Influenza Type A Antigen Negative (NEGATIVE) Influenza Type B Antigen Negative (NEGATIVE) SARS-CoV-2 Antigen (Rapid) Negative (NEGATIVE) Assessment and Plan Assessmemt and Plan Problems Medical Problems: (1) Diarrhea Status: Acute (2) Dizziness Status: Acute Diarrhea Clinical dehydration Leukocytosis Probable inability to take care of her self Hypertension, arthritis, chronic pain. Plan IV fluids Empiric IV antibiotics PT OT Home meds DVT prophylaxis Full code Trend labs Encourage p.o. intake Case management is working on possible long-term care placement or nursing home Comment Review of Relevant I have reviewed the following items rashawn (where applicable) has been applied. Medications: Current Medications Medications (Trade) Dose Ordered Sig/Katlyn Route PRN Reason Start Time Stop Time Status Last Admin Dose Admin Iohexol (Omnipaque 300 Mg/ml) 75 ml 1X ONCE IV 01/24/22 11:15 01/24/22 11:16 DC 01/24/22 11:15 Sodium Chloride 500 ml @ 500 mls/hr 1X ONCE IV 01/24/22 15:00 01/24/22 15:59 DC 01/24/22 14:29 Metronidazole (Flagyl) 500 mg Q8HRS PO 01/24/22 15:00 01/25/22 06:00 Ceftriaxone Sodium (Rocephin) 1 gm Q24H IVP 01/24/22 15:00 01/24/22 15:00 Sodium Chloride 1,000 ml @ 75 mls/hr [id number] IV 01/24/22 15:00 01/24/22 18:14 Justifications for Admission Other Justification BRENDON SAWANT III DO January 25, 2022 10:21
[2022-01-25 11:03] VITALS: BP 129/76
[2022-01-25] MEDS: cefTRIAXone IV Push 1 GM VIAL. IVP SCH (14:05)
[2022-01-25 15:05] VITALS: BP 140/87
--- NOTE | 2022-01-25 15:37 | NUR ---
Patient pulled IV out, refuses new IV. Notified Dr. Lopez, normal saline discontinued, encourage PO intake.
[2022-01-25 19:00] VITALS: BP 130/67
[2022-01-25] MEDS: LACTOBACILLUS RHAMNOSUS GG 1 CAPSULE. PO SCH (21:18)
[2022-01-25 23:00] VITALS: BP 97/57
[2022-01-26] MEDS: metroNIDAZOLE 500 MG TABLET PO SCH (06:54)
[2022-01-26] MEDS: cefTRIAXone IV Push 1 GM VIAL. IVP SCH (06:57)
[2022-01-26 07:15] VITALS: BP 123/80
[2022-01-26] MEDS: LACTOBACILLUS RHAMNOSUS GG 1 CAPSULE. PO SCH ×2 (07:38→21:00)
--- NOTE | 2022-01-26 09:42 | PDOC ---
[employer] PROGRESS NOTE Date of Service DOS: DATE: 01/26/22 TIME: 09:41 Chief Complaint Chief Complaint Diarrhea Clinical dehydration Leukocytosis Probable inability to take care of her self Hypertension, arthritis, chronic pain. History of Present Illness History of Present Illness 01/26/2022 Patient seen and examined She is eating scrambled eggs and talking with eggs hanging out of her mouth Very pleasant but confused Suspect she needs senior living and/or long-term care Discussed with RN Discussed with case management chart reviewed 01/25/2022 Patient seen and examined Discussed with RN Discussed with case management Chart reviewed Patient seems pleasant this morning Intermittently confused? Vitals/I&O Vitals/I&O: Vital Signs Date Time Temp Pulse Resp B/P (MAP) Pulse Ox O2 Delivery O2 Flow Rate FiO2 01/26/22 07:30 Room Air 01/26/22 07:15 97.9 69 18 123/80 (94) 96 97.9 I & O 01/25/22 01/25/22 01/26/22 15:00 23:00 07:00 Intake Total 640 ml 240 ml Balance 640 ml 240 ml Physical Exam General: No acute distress Heart: Regular rate Lungs: Clear Abdomen: Normal bowel sounds Extremities: No clubbing Skin: No rashes Labs Labs: Laboratory Tests Test 01/25/22 09:50 Coronavirus (COVID-19)(PCR) Not detected (NOT DETECTD) Assessment and Plan Assessmemt and Plan Problems Medical Problems: (1) Diarrhea Status: Acute (2) Dizziness Status: Acute Diarrhea Clinical dehydration Leukocytosis Probable inability to take care of her self Hypertension, arthritis, chronic pain. Plan IV fluids Empiric IV antibiotics PT OT Home meds DVT prophylaxis Full code Trend labs Encourage p.o. intake Case management is working on possible long-term care placement or senior living (healthcare resort may take her in the morning) Comment Review of Relevant I have reviewed the following items rashawn (where applicable) has been applied. Medications: Current Medications Medications (Trade) Dose Ordered Sig/Katlyn Route PRN Reason Start Time Stop Time Status Last Admin Dose Admin Lactobacillus Rhamnosus (Culturelle) 1 cap BID PO 01/25/22 21:00 01/26/22 07:38 Justifications for Admission Other Justification BRENDON SAWANT K III DO January 26, 2022 09:42
[2022-01-26] MEDS ORDERED: HYDR-2761 PO (10:07)
[2022-01-26] MEDS ORDERED: AMOX1TAB10 PO (10:09)
--- NOTE | 2022-01-26 10:10 | SNU/HH DC ---
DISCHARGE ORDERS DISCHARGE INFORMATION: FINAL DIAGNOSIS Problems Medical Problems: (1) Diarrhea Status: Acute (2) Dizziness Status: Acute CONDITION ON DISCHARGE: Stable CODE STATUS: Code Status: Full LONG-TERM: SNF STAY <30 DAYS: Yes HOSPICE: HOSPICE: No HOSPICE EVAL & TREAT: No LTAC: ADMIT TO LTAC: No POST DISCHARGE ORDERS: ACTIVITY ORDERS: Activity as tolerated DIET AFTER DISCHARGE: Cardiac TREATMENT/EQUIPMENT ORDERS: Physical Therapy For: Evalulation/Treatment Occupational Therapy For: Evaluation/Treatment Speech Language Pathology For: Evaluation/Treatment DISCHARGE MEDICATIONS: Home Meds Active Scripts Amoxicillin/Potassium Clav (AMOX TR-K CLV 500-125 MG TAB) 1 Each Tablet, 1 TAB PO BID for ., #14 TAB Prov:CASTLEGUSL K III DO 01/26/22 Hydrocodone Bit/Acetaminophen (HYDROCODONE-APAP 5-325 ) 1 Tab Tablet, 1 TAB PO PRN Q6HRS PRN for PAIN for 14 Days, #30 TAB Prov:CASTLEGUSL K III DO 01/26/22 Sennosides/Docusate Sodium (SENNA-TIME S TABLET) 1 Each Tablet, 1 TAB PO PRN BID PRN for CONSTIPATION, #60 TAB Prov:DANIEL HENRY MD 11/05/16 Ibuprofen (IBUPROFEN) 200 Mg Tablet, 200 MG PO PRN Q6HRS PRN for INFLAMMATION, #20 TAB Prov:SUMI BEAUCHAMP MD 10/23/16 Reported Medications Amlodipine Besylate (AMLODIPINE BESYLATE) 10 Mg Tablet, 10 MG PO DAILY for HTN, TAB 11/03/16 GUS SAWANTL K III DO January 26, 2022 10:10
--- NOTE | 2022-01-26 10:51 | PDOC ---
Date of Service: DATE: 01/26/22 TIME: 10:48 Subjective: Subjective: Denies diarrhea - says "back to normal." Objective: Objective: D/w nurse - stooled this morning - liquid mixed with loose. Stool studies sent. Eats okay. Mentation gets worse during the day. Vital Signs: Vital Signs Date Time Temp Pulse Resp B/P (MAP) Pulse Ox O2 Delivery O2 Flow Rate FiO2 01/26/22 07:30 Room Air 01/26/22 07:15 97.9 69 18 123/80 (94) 96 97.9 PE: GEN: NAD - was sleeping LUNGS: CTAB HEART: RRR ABD: S/ND/NT NEURO/PSYCH: A & O 3, probably forgetful A/P: Diarrhea - improved -- Await stool studies, consider stopping antibiotics. Justicifation of Admission Dx: Justifications for Admission: Justification of Admission Dx: Yes JOSE SCHULTE January 26, 2022 10:51
[2022-01-26 11:15] VITALS: BP 124/68
[2022-01-26] MEDS ORDERED: ACETAMINOPHEN 325 MG TABLET. PO PRN (12:00)
[2022-01-26 14:59] VITALS: BP 119/71
[2022-01-26 19:20] VITALS: BP 151/86
[2022-01-26 23:10] VITALS: BP 154/73
[2022-01-27 02:59] VITALS: BP 117/68
[2022-01-27 07:00] VITALS: BP 129/74
[2022-01-27] MEDS: LACTOBACILLUS RHAMNOSUS GG 1 CAPSULE. PO SCH (08:28)
--- NOTE | 2022-01-27 09:40 | PDOC ---
Date of Service: DATE: 01/27/22 TIME: 09:38 Subjective: Subjective: No complaints, no diarrhea. Objective: Objective: Reviewed chart - plans for SNU when discharged. Stool studies pending. Vital Signs: Vital Signs Date Time Temp Pulse Resp B/P (MAP) Pulse Ox O2 Delivery O2 Flow Rate FiO2 01/27/22 08:00 Room Air 01/27/22 07:00 97.7 68 19 129/74 (92) 99 97.7 PE: GEN: NAD - standing next to bed w/ walker, staff present LUNGS: CTAB HEART: RRR ABD: S/ND/NT NEURO/PSYCH: pleasantly confused A/P: Diarrhea - resolved -- Awaiting DC. Justicifation of Admission Dx: Justifications for Admission: Justification of Admission Dx: Yes JOSE SCHULTE January 27, 2022 09:40
--- NOTE | 2022-01-27 10:42 | SNU/HH DC ---
DISCHARGE ORDERS DISCHARGE INFORMATION: FINAL DIAGNOSIS Problems Medical Problems: (1) Diarrhea Status: Acute (2) Dizziness Status: Acute CONDITION ON DISCHARGE: Stable CODE STATUS: Code Status: Full ASSISTED: SNF STAY <30 DAYS: Yes HOSPICE: HOSPICE: No HOSPICE EVAL & TREAT: No LTAC: ADMIT TO LTAC: No POST DISCHARGE ORDERS: ACTIVITY ORDERS: Activity as tolerated DIET AFTER DISCHARGE: Cardiac TREATMENT/EQUIPMENT ORDERS: Physical Therapy For: Evalulation/Treatment Occupational Therapy For: Evaluation/Treatment Speech Language Pathology For: Evaluation/Treatment DISCHARGE MEDICATIONS: Home Meds Active Scripts Amoxicillin/Potassium Clav (AMOX TR-K CLV 500-125 MG TAB) 1 Each Tablet, 1 TAB PO BID for ., #14 TAB Prov:CASTLEGUSL K III DO 01/26/22 Hydrocodone Bit/Acetaminophen (HYDROCODONE-APAP 5-325 ) 1 Tab Tablet, 1 TAB PO PRN Q6HRS PRN for PAIN for 14 Days, #30 TAB Prov:CASTLEGUSL K III DO 01/26/22 Sennosides/Docusate Sodium (SENNA-TIME S TABLET) 1 Each Tablet, 1 TAB PO PRN BID PRN for CONSTIPATION, #60 TAB Prov:DANIEL HENRY MD 11/05/16 Ibuprofen (IBUPROFEN) 200 Mg Tablet, 200 MG PO PRN Q6HRS PRN for INFLAMMATION, #20 TAB Prov:SUMI BEAUCHAMP MD 10/23/16 Reported Medications Amlodipine Besylate (AMLODIPINE BESYLATE) 10 Mg Tablet, 10 MG PO DAILY for HTN, TAB 11/03/16 GUS SAWANTL K III DO January 27, 2022 10:42
[2022-01-27] MEDS ORDERED: HYDR-2759 PO (10:44)
--- NOTE | 2022-01-27 10:45 | PDOC ---
[facility] [facility] PROGRESS NOTE Date of Service DOS: DATE: 01/27/22 TIME: 10:45 Chief Complaint Chief Complaint Diarrhea Clinical dehydration Leukocytosis Probable inability to take care of her self Hypertension, arthritis, chronic pain. History of Present Illness History of Present Illness 01/27/2022 Patient seen and examined Discussed with case management Discussed with RN We [facility] today 01/26/2022 Patient seen and examined She is eating scrambled eggs and talking with eggs hanging out of her mouth Very pleasant but confused Suspect she needs halfway and/or long-term care Discussed with RN Discussed with case management chart reviewed 01/25/2022 Patient seen and examined Discussed with RN Discussed with case management Chart reviewed Patient seems pleasant this morning Intermittently confused? Vitals/I&O Vitals/I&O: Vital Signs Date Time Temp Pulse Resp B/P (MAP) Pulse Ox O2 Delivery O2 Flow Rate FiO2 01/27/22 08:00 Room Air 01/27/22 07:00 97.7 68 19 129/74 (92) 99 97.7 I & O 01/26/22 01/26/22 01/27/22 15:00 23:00 07:00 Intake Total 480 ml 120 ml 360 ml Output Total 1 ml Balance 479 ml 120 ml 360 ml Physical Exam General: No acute distress Heart: Regular rate Lungs: Clear Abdomen: Normal bowel sounds Extremities: No clubbing Skin: No rashes Assessment and Plan Assessmemt and Plan Problems Medical Problems: (1) Diarrhea Status: Acute (2) Dizziness Status: Acute Comment Review of Relevant I have reviewed the following items rashawn (where applicable) has been applied. Medications: Current Medications Medications (Trade) Dose Ordered Sig/Katlyn Route PRN Reason Start Time Stop Time Status Last Admin Dose Admin Acetaminophen (Tylenol) 650 mg PRN Q6HRS PRN PO MILD PAIN / TEMP > 100.3'F 01/26/22 12:00 01/26/22 11:58 Justifications for Admission Other Justification BRENDON SAWANT III DO January 27, 2022 10:45
[2022-01-27 11:00] VITALS: BP 132/70
[2022-01-27 15:00] VITALS: BP 141/79
--- NOTE | 2022-01-27 16:00 | NUR ---
[facility], attempted to contact [facility] with report but no answer. Pt transported off unit with medical transport via wheelchair with all belongings as well as [facility] pt packet.
--- NOTE | 2022-01-28 10:54 | DS ---
DATE OF DISCHARGE: 01/27/2022 ADMISSION DIAGNOSES: Diarrhea, dehydration, leukocytosis, malnutrition, possible early dementia. DISCHARGE DIAGNOSES: Resolving dehydration, resolving diarrhea, resolving leukocytosis. CONSULTATIONS: GI. PROCEDURES: None. HOSPITAL COURSE: The patient is a pleasant elderly female who presented with dehydration and weakness. She had several loose stools. She was having some memory issues. We gave her IV antibiotics and fluids. We consulted GI, did physical therapy, occupational therapy and over the next few days, she seemed to do well. Yesterday when I saw and examined her, she was more alert, but she was still weak. We discharged to [facility] at [facility]. DISPOSITION: [facility] at [facility]. ACTIVITY: As tolerated. DIET: Low sodium. DISCHARGE MEDICATIONS: Please see the [facility]. Augmentin 500 b.i.d., hydrocodone 5 q. 6 hours p.r.n., amlodipine 10 a day, ibuprofen p.r.n., senna. Total time [address]: Solomon TID: [id number]
== END 2022-01-27 16:00 | DRG 641 ==
LOC: ER 10:14 → 4 NORTH 16:50 → OBSVTOIN 01-25 09:56
PROVIDERS: ADMIT Internal Medicine; ATTEND Internal Medicine
DX: E86.0 Dehydration (principal); E46 Unspecified protein-calorie malnutrition; Z68.1 Body mass index [BMI] 19.9 or less, adult; K86.2 Cyst of pancreas; R19.7 Diarrhea, unspecified; D72.829 Elevated white blood cell count, unspecified; Z20.822 Contact with and (suspected) exposure to COVID-19; E78.00 Pure hypercholesterolemia, unspecified; E78.5 Hyperlipidemia, unspecified; G89.29 Other chronic pain; I10 Essential (primary) hypertension; M19.90 Unspecified osteoarthritis, unspecified site; Z83.3 Family history of diabetes mellitus; Z87.891 Personal history of nicotine dependence; Z98.41 Cataract extraction status, right eye; Z98.42 Cataract extraction status, left eye
CPT/HCPCS: 36415; 74177; 80053; 81001; 83690; 84484; 85025; 87428; 87493; 87505; 93005; 96360; G0378; G0379; J0696; J7030; J7040; Q9967; U0003; 97110-GP; 97116-GP; 97530-GO; 97535-GO; 99285-25